=== PATIENT | male | born 1980 | race Caucasian/White ===

== ENCOUNTER 2017-03-05 12:31 | Emergency (ER) | payer OTHER ==
[~2017-03-05] VITALS: Ht 185.4 cm; Wt 149.7 kg
[~2017-03-05 12:31] MED LIST: ATOR20TA58 PO; GABA-586 PO; GLIP-112 PO; INSU100I17 SQ; INSU100I27 SQ; LIRA0.6P2 SQ; LURA40TA PO; METF100010 PO; OMEP40CA5 PO; TRAZ100T12 PO; VALS320T2 PO
[2017-03-05 12:45] VITALS: BP 124/67
[2017-03-05] MEDS ORDERED: HYDROcodone/APAP 5/325MG 1 TAB TABLET PO ONE (13:00)
[2017-03-05] MEDS ORDERED: CYCLOBENZAPRINE 10 MG TABLET. PO ONE (13:00)
--- NOTE | 2017-03-05 13:17 | RAD ---
Lumbar spine 3 views. History: Low back pain, left leg numbness 3 views were taken of the lumbar spine. The spine is in normal alignment. Disc spaces are normal in height. A fracture is not identified. Impression: 1. Negative lumbar spine.
--- NOTE | 2017-03-05 13:22 | PHYS DOC ---
Adult General Chief Complaint Chief Complaint: LOWER EXT PAIN HPI HPI Patient is a 36 year old male presents the ED complaining of back pain times 2 days. Patient states he bent down to pick something up and felt a pull in his lower back. States the pain is sharp. Rates the pain as 8 out of 10. States the pain radiates down his left leg. Denies bowel/bladder changes, saddle anesthesia , abdominal pain, dysuria, hematuria, fever, weakness or dizziness. Review of Systems Review of Systems Constitutional: Denies fever or chills [] Eyes: Denies change in visual acuity, redness, or eye pain [] HENT: Denies nasal congestion or sore throat [] Respiratory: Denies cough or shortness of breath [] Cardiovascular: No additional information not addressed in HPI [] GI: Denies abdominal pain, nausea, vomiting, bloody stools or diarrhea [] : Denies dysuria or hematuria [] Musculoskeletal: Complains of back pain. Denies joint pain [] Integument: Denies rash or skin lesions [] Neurologic: Denies headache, focal weakness or sensory changes [] Endocrine: Denies polyuria or polydipsia [] All other systems were reviewed and found to be within normal limits, except as documented in this note. Current Medications Current Medications Current Medications Medications (Trade) Dose Ordered Sig/[facility] Start Time Stop Time Status Last Admin Dose Admin Acetaminophen/ Hydrocodone Bitart (Lortab 5/325) 1 tab 1X ONCE 03/05/17 13:00 03/05/17 13:01 DC 03/05/17 13:10 1 TAB Cyclobenzaprine HCl (Flexeril) 10 mg 1X ONCE 03/05/17 13:00 03/05/17 13:01 DC 03/05/17 13:10 10 MG Allergies Allergies Allergies Coded Allergies Type Severity Reaction Last Updated Verified No Known Drug Allergies 01/30/17 No Physical Exam Physical Exam Constitutional: Well developed, well nourished, no acute distress, non-toxic appearance. [] HENT: Normocephalic, atraumatic, bilateral external ears normal, oropharynx moist, no oral exudates, nose normal. [] Eyes: PERRLA, EOMI, conjunctiva normal, no discharge. [] Neck: Normal range of motion, no tenderness, supple, no stridor. [] Cardiovascular:Heart rate regular rhythm, no murmur [] Lungs & Thorax: Bilateral breath sounds clear to auscultation [] Abdomen: Bowel sounds normal, soft, no tenderness, no masses, no pulsatile masses. [] Skin: Warm, dry, no erythema, no rash. [] Back: MILD LEFT LUMBAR PARASPINAL TENDERNESS. NO SWELLING OR OVERLYING SKIN CHANGES. no CVA tenderness. [] Extremities: No tenderness, no cyanosis, no clubbing, ROM intact, no edema. [] Neurologic: Alert and oriented X 3, normal motor function, normal sensory function, no focal deficits noted. [] Psychologic: Affect normal, judgement normal, mood normal. [] Current Patient Data Vital Signs Vital Signs Date Time Temp Pulse Resp B/P (MAP) Pulse Ox O2 Delivery O2 Flow Rate FiO2 03/05/17 12:45 98.2 99 16 97 Room Air 98.2 EKG EKG [] Radiology/Procedures Radiology/Procedures []PROCEDURE: LUMBAR SPINE 2-3V Lumbar spine 3 views. History: Low back pain, left leg numbness 3 views were taken of the lumbar spine. The spine is in normal alignment. Disc spaces are normal in height. A fracture is not identified. Impression: 1. Negative lumbar spine. Course & Med Decision Making Course & Med Decision Making Pertinent Labs and Imaging studies reviewed. (See chart for details) []X-ray negative for acute injury. Patient's pain improved. Vital stable, no acute distress. No focal neural deficits. Patient able to ambulate without assistance. Discussed follow-up with orthopedics early this next week. Provided contact information/education. Discussed reasons to return to the ED. Patient understands and agrees with plan. Dragon Disclaimer Dragon Disclaimer This electronic medical record was generated, in whole or in part, using a voice recognition dictation system. Departure Departure Impression: Primary Impression: Back injury Additional Impression: Muscle strain Disposition: 01 HOME, SELF-CARE Condition: IMPROVED Referrals: MARY CHU MD (PCP) ADRIANNA GREEN MD Patient Instructions: Back Pain, Adult, Muscle Strain Scripts Cyclobenzaprine Hcl (CYCLOBENZAPRINE HCL) 5 Mg Tablet 1 TAB PO TID, #12 TAB Prov: CUCA BUTLER 03/05/17 Hydrocodone/Apap 5-325 (NORCO 5-325 TABLET) 1 Each Tablet 1 TAB PO BID, #8 TAB Prov: CUCA BUTLER 03/05/17 Problem Qualifiers CUCA BUTLER Mar 05, 2017 13:22
[2017-03-05] MEDS ORDERED: HYDR-971 PO (13:25)
[2017-03-05] MEDS ORDERED: CYCL5TAB PO (13:25)
== END 2017-03-05 13:54 | disposition home or self-care (01) ==
LOC: ER 12:31
DX: S39.012A Strain of muscle, fascia and tendon of lower back, initial encounter (principal); X58.XXXA Exposure to other specified factors, initial encounter; Y93.89 Activity, other specified; Y92.89 Other specified places as the place of occurrence of the external cause; Y99.8 Other external cause status
CPT/HCPCS: 72100; 99284

== ENCOUNTER 2017-09-28 03:46 | Emergency (ER) | payer OTHER ==
[2017-09-28] MEDS ORDERED: CONTRAST GIVEN. MC (04:15)
[2017-09-28 04:27] LABS: ADD MAN DIFF? NO
[2017-09-28 04:28] LABS: BASO # 0.1 x10^3/uL (0.0-0.2); BASO % 1 % (0-3); EOS # 0.1 x10^3/uL (0.0-0.7); EOS % 1 % (0-3); HEMOGLOBIN 15.7 g/dL (13.0-17.5); LYMPH # 2.1 x10^3/uL (1.0-4.8); LYMPH % 27 % (24-48); MEAN CORPUSCULAR HEMOGLOBIN 34 pg (25-35); MEAN CORPUSCULAR HGB CONC 35 g/dL (31-37); MEAN CORPUSCULAR VOLUME 97 fL (79-100); MONO # 0.6 x10^3/uL (0.0-1.1); MONO % 8 % (0-9); NEUT % 63 % (31-73); PLATELET COUNT 178 x10^3/uL (140-400); RED BLOOD COUNT 4.65 x10^6/uL (4.30-5.70); RED CELL DISTRIBUTION WIDTH 12.9 % (11.5-14.5); WHITE BLOOD COUNT 7.9 x10^3/uL (4.0-11.0)
[2017-09-28] MEDS: IV NORMAL SALINE 1000ML BAG 1,000 ML IV (04:30)
[2017-09-28 04:46] LABS: ALBUMIN 3.4 g/dL (3.4-5.0); ALK PHOS 125 U/L (46-116); ALT (SGPT) 49 U/L (16-63); ANION GAP 5 (6-14); AST (SGOT) 35 U/L (15-37); BLOOD UREA NITROGEN 8 mg/dL (8-26); CALCIUM 8.9 mg/dL (8.5-10.1); CARBON DIOXIDE 26 mmol/L (21-32); CHLORIDE 100 mmol/L (98-107); CREATININE 1.2 mg/dL (0.7-1.3); DIRECT BILIRUBIN 0.1 mg/dL (0.0-0.2); GFR 68.5; LIPASE 169 U/L (73-393); SODIUM 131 mmol/L (136-145); TOTAL BILIRUBIN 0.3 mg/dL (0.2-1.0); TOTAL PROTEIN 7.8 g/dL (6.4-8.2)
[2017-09-28 04:56] LABS: GLUCOSE 549 mg/dL (70-99)
[2017-09-28] MEDS: IOHEXOL 300 MG/ML 100ML VIAL. IV (05:00)
[2017-09-28 05:14] LABS: BILIRUBIN,URINE NEGATIVE (NEG); CLARITY,URINE CLEAR; COLOR,URINE YELLOW; GLUCOSE,URINE >=1000 mg/dL (NEG); NITRITE,URINE NEGATIVE (NEG); PH,URINE 5.5; PROTEIN,URINE NEGATIVE (NEG-TRACE)
[2017-09-28 05:20] LABS: BACTERIA,URINE 0 /HPF (0-FEW); RBC,URINE 0 /HPF (0-2); SQUAMOUS EPITHELIAL CELL,UR OCC /LPF; WBC,URINE 0 /HPF (0-4)
[2017-09-28] MEDS: INSULIN REGULAR 100 UNIT/ML 3ML VIAL. IV (06:02)
== END 2017-09-28 06:35 | disposition home or self-care (01) ==
LOC: ER 03:46
DX: R10.10 Upper abdominal pain, unspecified (principal); R11.10 Vomiting, unspecified; R19.7 Diarrhea, unspecified
CPT/HCPCS: 36415; 74177; 80048; 80076; 81001; 83690; 85025; 96361; 96374; 99285-25; J1815; J7030; Q9967

== ENCOUNTER 2017-10-05 18:30 | Inpatient (IN) | payer OTHER ==
[2017-10-05 19:52] LABS: POC GLUCOSE 218 mg/dL (70-99)
[2017-10-05] MEDS ORDERED: DEXTROSE 50% 25 GM / 50ML DISP.SYRIN. IV (20:45)
[2017-10-05] MEDS ORDERED: ONDANSETRON PF 4 MG/2 ML VIAL. IV (20:45)
[2017-10-05] MEDS ORDERED: HYDROcodone/APAP 5/325MG 1 TAB TABLET PO (20:45)
[2017-10-05] MEDS: traZODone 100 MG TABLET. PO (21:48)
[2017-10-05] MEDS: GABAPENTIN 300 MG CAPSULE. PO (21:48)
[2017-10-05] MEDS: LURASIDONE 40 MG TABLET. PO (21:48)
[2017-10-05] MEDS: ATORVASTATIN CALCIUM 20 MG TABLET PO (21:48)
[2017-10-05] MEDS: IV NORMAL SALINE 1000ML BAG 1,000 ML IV (21:54)
[2017-10-05 22:03] LABS: ADD MAN DIFF? NO
[2017-10-05 22:07] LABS: BASO # 0.1 x10^3/uL (0.0-0.2); BASO % 1 % (0-3); EOS # 0.1 x10^3/uL (0.0-0.7); EOS % 1 % (0-3); HEMATOCRIT 46.8 % (39.0-53.0); LYMPH # 2.9 x10^3/uL (1.0-4.8); LYMPH % 26 % (24-48); MEAN CORPUSCULAR HEMOGLOBIN 33 pg (25-35); MEAN CORPUSCULAR HGB CONC 34 g/dL (31-37); MEAN CORPUSCULAR VOLUME 96 fL (79-100); MONO # 0.7 x10^3/uL (0.0-1.1); MONO % 6 % (0-9); NEUT # 7.6 x10^3uL (1.8-7.7); NEUT % 67 % (31-73); PLATELET COUNT 183 x10^3/uL (140-400); RED BLOOD COUNT 4.85 x10^6/uL (4.30-5.70); RED CELL DISTRIBUTION WIDTH 12.7 % (11.5-14.5); WHITE BLOOD COUNT 11.4 x10^3/uL (4.0-11.0)
[2017-10-05 22:20] LABS: ALBUMIN 3.5 g/dL (3.4-5.0); ALBUMIN/GLOBULIN RATIO 0.9 (1.0-1.7); ALK PHOS 107 U/L (46-116); ALT (SGPT) 68 U/L (16-63); AMYLASE 34 U/L (25-115); ANION GAP 8 (6-14); AST (SGOT) 36 U/L (15-37); BLOOD UREA NITROGEN 11 mg/dL (8-26); BUN/CREATININE RATIO 11 (6-20); CALCIUM 9.3 mg/dL (8.5-10.1); CARBON DIOXIDE 31 mmol/L (21-32); CHLORIDE 99 mmol/L (98-107); GFR 84.5; GLUCOSE 213 mg/dL (70-99); LIPASE 122 U/L (73-393); POTASSIUM 3.3 mmol/L (3.5-5.1); SODIUM 138 mmol/L (136-145); TOTAL BILIRUBIN 0.9 mg/dL (0.2-1.0); TOTAL PROTEIN 7.6 g/dL (6.4-8.2)
[2017-10-05 22:56] LABS: BILIRUBIN,URINE SMALL (NEG); CLARITY,URINE TURBID; COLOR,URINE ORANGE; GLUCOSE,URINE 100 mg/dL (NEG); PH,URINE 5.5; PROTEIN,URINE 100 mg/dL (NEG-TRACE)
[2017-10-05 23:04] LABS: AMORPHOUS SEDIMENT,UR PRESENT /HPF; BACTERIA,URINE 0 /HPF (0-FEW); NITRITE,URINE NEGATIVE (NEG); RBC,URINE 0 /HPF (0-2); SQUAMOUS EPITHELIAL CELL,UR OCC /LPF; WBC,URINE 0 /HPF (0-4)
[2017-10-05] MEDS: POTASSIUM CHLORIDE 20 MEQ TABLET.ER. PO (23:25)
[2017-10-06 04:58] LABS: ADD MAN DIFF? NO
[2017-10-06 05:02] LABS: BASO # 0.1 x10^3/uL (0.0-0.2); BASO % 1 % (0-3); EOS # 0.1 x10^3/uL (0.0-0.7); EOS % 1 % (0-3); HEMATOCRIT 44.9 % (39.0-53.0); HEMOGLOBIN 15.5 g/dL (13.0-17.5); LYMPH % 30 % (24-48); MEAN CORPUSCULAR HEMOGLOBIN 34 pg (25-35); MEAN CORPUSCULAR HGB CONC 35 g/dL (31-37); MEAN CORPUSCULAR VOLUME 97 fL (79-100); MONO # 0.7 x10^3/uL (0.0-1.1); MONO % 7 % (0-9); NEUT # 6.2 x10^3uL (1.8-7.7); NEUT % 62 % (31-73); PLATELET COUNT 157 x10^3/uL (140-400); RED BLOOD COUNT 4.63 x10^6/uL (4.30-5.70); RED CELL DISTRIBUTION WIDTH 12.7 % (11.5-14.5)
[2017-10-06 05:49] LABS: ANION GAP 12 (6-14); BLOOD UREA NITROGEN 13 mg/dL (8-26); CARBON DIOXIDE 27 mmol/L (21-32); CHLORIDE 101 mmol/L (98-107); CHOLESTEROL 208 mg/dL (0-200); GFR 84.5; GLUCOSE 234 mg/dL (70-99); HDLC 25 mg/dL (40-60); LDLC 139 mg/dL (0-100); NON-HDL CHOLESTEROL 183 mg/dL (0-129); POTASSIUM 3.2 mmol/L (3.5-5.1); SODIUM 140 mmol/L (136-145); TRIGLYCERIDES 219 mg/dL (0-150); VLDLC 44 mg/dL (0-40)
[2017-10-06 05:55] LABS: CHOLESTEROL/HDL RATIO 8.3
[2017-10-06 06:00] LABS: THYROID STIM HORMONE (TSH) 3.256 uIU/mL (0.358-3.74)
[2017-10-06] MEDS: LEVOTHYROXINE 25 MCG TABLET. PO (06:14)
[2017-10-06] MEDS: metFORMIN XR 500 MG TAB.ER.24H PO (06:14)
[2017-10-06] MEDS: PANTOPRAZOLE 40 MG TABLET.DR. PO (06:14)
[2017-10-06] MEDS: IV NORMAL SALINE 1000ML BAG 1,000 ML IV (06:14)
[2017-10-06 08:04] LABS: POC GLUCOSE 264 mg/dL (70-99)
[2017-10-06] MEDS: INSULIN LISPRO 300 UNITS/3 ML INSULN.PEN. SQ ×6 (08:13→16:35)
[2017-10-06] MEDS ORDERED: NON FORMULARY ITEM (Liraglutide (Victoza 3-Pak) 1.2 MG) SQ (09:00)
[2017-10-06] MEDS ORDERED: NON FORMULARY ITEM (Omeprazole 1 CAP) PO (09:00)
[2017-10-06] MEDS: LOSARTAN POTASSIUM 50 MG TABLET. PO (09:00)
[2017-10-06 10:56] LABS: POC GLUCOSE 236 mg/dL (70-99)
[2017-10-06] MEDS ORDERED: ONDANSETRON PF 4 MG/2 ML VIAL. IV (11:00)
[2017-10-06] MEDS ORDERED: PROCHLORPERAZINE 10 MG/2 ML VIAL. IV (11:00)
[2017-10-06] MEDS ORDERED: fentaNYL PF VIAL 100 MCG/2 ML VIAL IV ×4 (11:00→14:00)
[2017-10-06] MEDS ORDERED: MORPHINE SULFATE 2 MG/ML DISP.SYRIN. IV (11:00)
[2017-10-06] MEDS ORDERED: LIDOCAINE 1% PF 2 ML VIAL. ID ×2 (11:00→14:00)
[2017-10-06 11:23] LABS: HIV AB SCREEN Nonreactive (Nonreactive)
[2017-10-06] MEDS ORDERED: IV RINGERS,LACTATED 1000ML 1,000 ML IV (13:47)
[2017-10-06] MEDS ORDERED: MIDAZOLAM HCL/PF 2 MG/2 ML VIAL. IV (14:00)
[2017-10-06] MEDS: IV RINGERS,LACTATED 1000ML 1,000 ML IV (14:05)
[2017-10-06] MEDS ORDERED: PROPOFOL 10 MG/ML (20ML) VIAL. IV (14:45)
[2017-10-06] MEDS ORDERED: PROPOFOL 60 ML IV (14:47)
[2017-10-06 16:27] LABS: POC GLUCOSE 170 mg/dL (70-99)
[2017-10-06] MEDS: glipiZIDE ER 2.5 MG TAB.ER.24 PO (16:27)
[2017-10-06] MEDS: POTASSIUM CHLORIDE 20 MEQ TABLET.ER. PO (16:32)
[2017-10-06] MEDS ORDERED: INSULIN GLARGINE 300 UNITS/3 ML INSULN.PEN. SQ (21:00)
== END 2017-10-06 18:00 | disposition home or self-care (01) | DRG 392 ==
LOC: 5 SOUTH 18:30
PROVIDERS: Internal Medicine
PROC: 0DB68ZX Excision of Stomach, Via Natural or Artificial Opening Endoscopic, Diagnostic (ICD-10-PCS; principal; 2017-10-06 15:00)
DX: K21.0 Gastro-esophageal reflux disease with esophagitis (principal); Z68.41 Body mass index [BMI] 40.0-44.9, adult; E03.9 Hypothyroidism, unspecified; E11.40 Type 2 diabetes mellitus with diabetic neuropathy, unspecified; E11.65 Type 2 diabetes mellitus with hyperglycemia; E66.01 Morbid (severe) obesity due to excess calories; E78.5 Hyperlipidemia, unspecified; F20.9 Schizophrenia, unspecified; F90.9 Attention-deficit hyperactivity disorder, unspecified type; I10 Essential (primary) hypertension; Z82.49 Family history of ischemic heart disease and other diseases of the circulatory system; Z83.3 Family history of diabetes mellitus; Z90.89 Acquired absence of other organs
CPT/HCPCS: 36415; 71046; 76700; 80048; 80053; 80061; 81001; 82150; 82962; 83036; 83690; 84443; 85025; 86703; 93005; J1815; J2704; J7030; J7120

== ENCOUNTER 2017-11-19 18:21 | Emergency (ER) | payer OTHER ==
[~2017-11-19] VITALS: Ht 190.5 cm; Wt 140.6 kg
[~2017-11-19 18:21] MED LIST changes: +CYCL5TAB PO; +HYDR-971 PO; +TRAZ-86 PO; -TRAZ100T12 PO
[2017-11-19 18:46] LABS: BASO # 0.1 x10^3/uL (0.0-0.2); BASO % 1 % (0-3); EOS # 0.2 x10^3/uL (0.0-0.7); EOS % 1 % (0-3); HEMATOCRIT 50.9 % (39.0-53.0); HEMOGLOBIN 17.4 g/dL (13.0-17.5); LYMPH # 5.3 x10^3/uL (1.0-4.8); LYMPH % 32 % (24-48); MEAN CORPUSCULAR HEMOGLOBIN 33 pg (25-35); MEAN CORPUSCULAR HGB CONC 34 g/dL (31-37); MEAN CORPUSCULAR VOLUME 96 fL (79-100); MONO # 0.7 x10^3/uL (0.0-1.1); MONO % 5 % (0-9); NEUT # 10.3 x10^3uL (1.8-7.7); NEUT % 62 % (31-73); PLATELET COUNT 314 x10^3/uL (140-400); RED BLOOD COUNT 5.32 x10^6/uL (4.30-5.70); RED CELL DISTRIBUTION WIDTH 12.6 % (11.5-14.5); WHITE BLOOD COUNT 16.6 x10^3/uL (4.0-11.0)
--- NOTE | 2017-11-19 18:48 | EKG ---
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
--- NOTE | 2017-11-19 19:24 | RAD ---
CT Head W/O Contrast: History: near syncope no priors Comparison: none Axial images were obtained without contrast. The martinez and white matter appears normal and symmetrical for the patients age. There is no mass effect, extraaxial fluid collections or hydrocephalus. There is no gross bleed. There is no focal loss of martinez-white matter distinction to suggest acute ischemia, i.e. stroke. Impression: No acute findings. RS Compliance Statement: One or more of the following individualized dose reduction techniques were utilized for this examination: 1. Automated exposure control 2. Adjustment of the mA and/or kV according to patient size 3. Use of iterative reconstruction technique Electronically signed by: Phillip Concepcion III, MD (11/19/2017 7:21 PM) [facility]
[2017-11-19] MEDS: IV NORMAL SALINE 1000ML BAG 1,000 ML IV ONE ×2 (19:31→20:33)
[2017-11-19 19:47] LABS: CALCIUM 10.4 mg/dL (8.5-10.1); CREATININE 1.3 mg/dL (0.7-1.3); GFR 62.5; POTASSIUM 4.1 mmol/L (3.5-5.1)
[2017-11-19 19:53] LABS: ALBUMIN 3.5 g/dL (3.4-5.0); ALBUMIN/GLOBULIN RATIO 0.8 (1.0-1.7); TOTAL BILIRUBIN 0.6 mg/dL (0.2-1.0); TOTAL PROTEIN 7.9 g/dL (6.4-8.2)
[2017-11-19 20:23] LABS: BILIRUBIN,URINE SMALL (NEG); CLARITY,URINE CLEAR; COLOR,URINE YELLOW; NITRITE,URINE NEGATIVE (NEG); PH,URINE 5.5; PROTEIN,URINE 100 mg/dL (NEG-TRACE)
[2017-11-19 20:35] LABS: BACTERIA,URINE FEW /HPF (0-FEW); HYALINE CASTS, URINE MODERATE /HPF; SQUAMOUS EPITHELIAL CELL,UR FEW /LPF
--- NOTE | 2017-11-19 21:00 | PHYS DOC ---
Past Medical History Past Medical History: Bipolar, Diabetes-Type II, High Cholesterol, Hypertension , Hypothyroid Past Surgical History: No Surgical History Alcohol Use: None Drug Use: None Adult General Chief Complaint Chief Complaint: DIZZY/LIGHT HEADED HPI HPI Patient is a 37 year old male who presents with complaints of dizziness while walking today. The patient states that he was sweating profusely and felt like he might pass out. He states that he still feels extremely tired and sweaty. He states that he had a similar episode of this once before when he was dehydrated. The patient is diabetic and has not been taking his insulin. He states that he cannot get to a pharmacy to get his prescriptions filled. Review of Systems Review of Systems Constitutional: Denies fever or chills [] Eyes: Denies change in visual acuity, redness, or eye pain [] HENT: Denies nasal congestion or sore throat [] Respiratory: Denies cough or shortness of breath [] Cardiovascular: No additional information not addressed in HPI [] GI: Denies abdominal pain, nausea, vomiting, bloody stools or diarrhea [] : Denies dysuria or hematuria [] Musculoskeletal: Denies back pain or joint pain [] Integument: Denies rash or skin lesions [] Neurologic: See history of present illness Endocrine: Denies polyuria or polydipsia [] All other systems were reviewed and found to be within normal limits, except as documented in this note. Current Medications Current Medications Current Medications Medications (Trade) Dose Ordered Sig/Rafael Start Time Stop Time Status Last Admin Dose Admin Sodium Chloride 1,000 ml @ 1,000 mls/hr 1X ONCE 11/19/17 20:30 11/19/17 21:29 DC 11/19/17 20:33 1,000 MLS/HR Allergies Allergies Allergies Coded Allergies Type Severity Reaction Last Updated Verified No Known Drug Allergies 10/06/17 No Physical Exam Physical Exam Constitutional: Well developed, well nourished, no acute distress, non-toxic appearance. [] HENT: Normocephalic, atraumatic, bilateral external ears normal, oropharynx moist, no oral exudates, nose normal. [] Eyes: PERRLA, EOMI, conjunctiva normal, no discharge. [] Neck: Normal range of motion, no tenderness, supple, no stridor. [] Cardiovascular:Heart rate regular rhythm, no murmur [] Lungs & Thorax: Bilateral breath sounds clear to auscultation [] Abdomen: Bowel sounds normal, soft, no tenderness, no masses, no pulsatile masses. [] Skin: Warm, dry, no erythema, no rash. [] Back: No tenderness, no CVA tenderness. [] Extremities: No tenderness, no cyanosis, no clubbing, ROM intact, no edema. [] Neurologic: Alert and oriented X 3, normal motor function, normal sensory function, no focal deficits noted, cranial nerves II through XII are grossly intact. [] Psychologic: Affect normal, judgement normal, mood normal. [] Current Patient Data Vital Signs Vital Signs Date Time Temp Pulse Resp B/P (MAP) Pulse Ox O2 Delivery O2 Flow Rate FiO2 11/19/17 20:56 90 11/19/17 19:32 96 11/19/17 18:33 98.4 20 125/72 (89) Room Air 98.4 Lab Values Laboratory Tests Test 11/19/17 18:30 11/19/17 19:12 11/19/17 20:13 White Blood Count 16.6 x10^3/uL (4.0-11.0) H Red Blood Count 5.32 x10^6/uL (4.30-5.70) Hemoglobin 17.4 g/dL (13.0-17.5) Hematocrit 50.9 % (39.0-53.0) Mean Corpuscular Volume 96 fL (79-100) Mean Corpuscular Hemoglobin 33 pg (25-35) Mean Corpuscular Hemoglobin Concent 34 g/dL (31-37) Red Cell Distribution Width 12.6 % (11.5-14.5) Platelet Count 314 x10^3/uL (140-400) Neutrophils (%) (Auto) 62 % (31-73) Lymphocytes (%) (Auto) 32 % (24-48) Monocytes (%) (Auto) 5 % (0-9) Eosinophils (%) (Auto) 1 % (0-3) Basophils (%) (Auto) 1 % (0-3) Neutrophils # (Auto) 10.3 x10^3uL (1.8-7.7) H Lymphocytes # (Auto) 5.3 x10^3/uL (1.0-4.8) H Monocytes # (Auto) 0.7 x10^3/uL (0.0-1.1) Eosinophils # (Auto) 0.2 x10^3/uL (0.0-0.7) Basophils # (Auto) 0.1 x10^3/uL (0.0-0.2) Sodium Level 133 mmol/L (136-145) L Potassium Level 4.1 mmol/L (3.5-5.1) Chloride Level 97 mmol/L (98-107) L Carbon Dioxide Level 29 mmol/L (21-32) Anion Gap 7 (6-14) Blood Urea Nitrogen 11 mg/dL (8-26) Creatinine 1.3 mg/dL (0.7-1.3) Estimated GFR (Cockcroft-Gault) 62.5 BUN/Creatinine Ratio 8 (6-20) Glucose Level 393 mg/dL (70-99) H Calcium Level 10.4 mg/dL (8.5-10.1) H Total Bilirubin 0.6 mg/dL (0.2-1.0) Aspartate Amino Transferase (AST) 36 U/L (15-37) Alanine Aminotransferase (ALT) 57 U/L (16-63) Alkaline Phosphatase 133 U/L (46-116) H Creatine Kinase 115 U/L (39-308) Creatine Kinase MB (Mass) 1.0 ng/mL (0.0-3.6) Creatine Kinase MB Relative Index 0.9 % (0-4) Troponin I Quantitative < 0.017 ng/mL (0.000-0.055) Total Protein 7.9 g/dL (6.4-8.2) Albumin 3.5 g/dL (3.4-5.0) Albumin/Globulin Ratio 0.8 (1.0-1.7) L Urine Collection Type Void Urine Color Yellow Urine Clarity Clear Urine pH 5.5 Urine Specific [place] >=1.030 Urine Protein 100 mg/dL (NEG-TRACE) Urine Glucose (UA) >=1000 mg/dL (NEG) Urine Ketones (Stick) Trace mg/dL (NEG) Urine Blood Negative (NEG) Urine Nitrite Negative (NEG) Urine Bilirubin Small (NEG) Urine Urobilinogen Dipstick 1.0 mg/dL (0.2 mg/dL) Urine Leukocyte Esterase Negative (NEG) Urine RBC 1-2 /HPF (0-2) Urine WBC 1-4 /HPF (0-4) Urine Squamous Epithelial Cells Few /LPF Urine Bacteria Few /HPF (0-FEW) Urine Hyaline Casts Moderate /HPF Urine Mucus Mod /LPF Laboratory Tests 11/19/17 18:30 Laboratory Tests 11/19/17 19:12 EKG EKG [] Radiology/Procedures Radiology/Procedures []PATIENT: MARCIE GONZALEZACCOUNT: [id number]#: [id number] : 1980 LOCATION: ER AGE: 37 SEX: M EXAM STATUS: REG ER ORD. PHYSICIAN: BETZAIDA EAST APRN REASON: near syncope PROCEDURE: CT HEAD WO CONTRAST CT Head W/O Contrast: History: near syncope no priors Comparison: none Axial images were obtained without contrast. The martinez and white matter appears normal and symmetrical for the patients age. There is no mass effect, extraaxial fluid collections or hydrocephalus. There is no gross bleed. There is no focal loss of martinez-white matter distinction to suggest acute ischemia, i.e. stroke. Impression: No acute findings. RS Compliance Statement: One or more of the following individualized dose reduction techniques were utilized for this examination: 1. Automated exposure control 2. Adjustment of the mA and/or kV according to patient size 3. Use of iterative reconstruction technique Electronically signed by: Adrianna Garsia III, MD (11/19/2017 7:21 PM) [facility] DICTATED and SIGNED BY: ADRIANNA GARSIA III, MD DATE: 11/19/171918 Course & Med Decision Making Course & Med Decision Making Pertinent Labs and Imaging studies reviewed. (See chart for details) []The patient I had a long talk about the consultations of untreated diabetes. He states that he will get to the pharmacy and start taking his medications as directed. Dragon Disclaimer Dragon Disclaimer This electronic medical record was generated, in whole or in part, using a voice recognition dictation system. Departure Departure Impression: Primary Impression: Uncontrolled diabetes mellitus Additional Impression: Dehydration Disposition: 01 HOME, SELF-CARE Condition: STABLE Referrals: MARY CHU MD (PCP) Patient Instructions: Dehydration, Adult, How to Avoid Diabetes Problems Additional Instructions: Refill your prescriptions for your insulin and start using it as directed. Follow-up with your primary care provider for recheck in 3 days. Increase fluids and rest. Return to the emergency department if worsening. Problem Qualifiers BETZAIDA EAST APRN Nov 19, 2017 21:00
[2017-11-19 21:26] VITALS: BP 154/86
== END 2017-11-19 21:35 | disposition home or self-care (01) ==
LOC: ER 18:21
DX: E11.9 Type 2 diabetes mellitus without complications (principal); E86.0 Dehydration; I10 Essential (primary) hypertension; E78.00 Pure hypercholesterolemia, unspecified; E03.9 Hypothyroidism, unspecified; F31.9 Bipolar disorder, unspecified; R42 Dizziness and giddiness; R53.83 Other fatigue
CPT/HCPCS: 36415; 70450; 80053; 81001; 82553; 84484; 85025; 93005; 96360; 96361; 99285; J7030

== ENCOUNTER 2018-04-12 21:42 | Emergency (ER) | payer OTHER ==
[~2018-04-12] VITALS: Ht 188 cm; Wt 140.6 kg
[~2018-04-12 21:42] MED LIST changes: -GABA-586 PO; +GABA300C18 PO; -GLIP-112 PO; +GLIP10TA24 PO; +HYDR-3164 PO; -HYDR-971 PO
[2018-04-12 22:23] LABS: BASO # 0.1 x10^3/uL (0.0-0.2); BASO % 1 % (0-3); EOS # 0.1 x10^3/uL (0.0-0.7); EOS % 1 % (0-3); HEMATOCRIT 50.4 % (39.0-53.0); HEMOGLOBIN 17.8 g/dL (13.0-17.5); LYMPH # 2.5 x10^3/uL (1.0-4.8); LYMPH % 18 % (24-48); MEAN CORPUSCULAR HEMOGLOBIN 34 pg (25-35); MEAN CORPUSCULAR HGB CONC 35 g/dL (31-37); MEAN CORPUSCULAR VOLUME 96 fL (79-100); MONO # 0.8 x10^3/uL (0.0-1.1); MONO % 6 % (0-9); NEUT # 10.1 x10^3uL (1.8-7.7); NEUT % 74 % (31-73); PLATELET COUNT 208 x10^3/uL (140-400); RED BLOOD COUNT 5.25 x10^6/uL (4.30-5.70); RED CELL DISTRIBUTION WIDTH 12.4 % (11.5-14.5); WHITE BLOOD COUNT 13.6 x10^3/uL (4.0-11.0)
[2018-04-12 22:32] LABS: ANION GAP 4 (6-14); BLOOD UREA NITROGEN 11 mg/dL (8-26); BUN/CREATININE RATIO 10 (6-20); CALCIUM 9.7 mg/dL (8.5-10.1); CARBON DIOXIDE 31 mmol/L (21-32); CHLORIDE 95 mmol/L (98-107); CREATININE 1.1 mg/dL (0.7-1.3); GFR 75.3; GLUCOSE 291 mg/dL (70-99); POTASSIUM 3.8 mmol/L (3.5-5.1); SODIUM 130 mmol/L (136-145)
[2018-04-12 22:37] LABS: ALBUMIN 3.6 g/dL (3.4-5.0); ALBUMIN/GLOBULIN RATIO 0.7 (1.0-1.7); ALK PHOS 137 U/L (46-116); ALT (SGPT) 49 U/L (16-63); AST (SGOT) 37 U/L (15-37); TOTAL BILIRUBIN 0.8 mg/dL (0.2-1.0); TOTAL PROTEIN 8.6 g/dL (6.4-8.2)
[2018-04-12] MEDS: IV NORMAL SALINE 1000ML BAG 1,000 ML IV ONE ×3 (22:41→23:00)
--- NOTE | 2018-04-12 22:49 | RAD ---
CHEST AP ONLY History: Short of breath. Comparison: October 05, 2017 Cardiomediastinal silhouette: Not grossly enlarged. Lungs: No focal airspace consolidation. Pleura: No evidence of pleural effusion. Pneumothorax: None visualized Support Devices: None. Impression: No acute radiographic findings. Electronically signed by: Gregorio Sage MD (04/12/2018 10:45 PM) [facility]
[2018-04-12 22:50] LABS: ACETONE NEG (NEG)
[2018-04-12 23:04] LABS: INFLUENZA A PATIENT NEGATIVE (NEGATIVE); INFLUENZA B PATIENT NEGATIVE (NEGATIVE)
--- NOTE | 2018-04-12 23:20 | PHYS DOC ---
Past Medical History Past Medical History: Bipolar, Diabetes-Type II, High Cholesterol, Hypertension , Hypothyroid Past Surgical History: Other Additional Past Surgical Histo: Tubes in ears as a child Alcohol Use: None Drug Use: None Adult General Chief Complaint Chief Complaint: WEAKNESS/GENERALIZED HPI HPI Patient is a 38 year old male with history of bipolar, hypothyroidism, type 2 insulin-dependent diabetes, hypertension dyslipidemia who presents with body aches, generalized weakness, cough and lightheadedness starting earlier today. Patient reports he has been elevated in the 250 range. No fever chills, chest pain shortness of breath. No other acute symptoms or complaints. [] Review of Systems Review of Systems Review symptoms as per history of present illness. All other systems were reviewed and found to be within normal limits, except as documented in this note. Current Medications Current Medications Current Medications Medications (Trade) Dose Ordered Sig/Rafael Start Time Stop Time Status Last Admin Dose Admin Acetaminophen (Tylenol) 650 mg 1X ONCE 04/13/18 01:00 04/13/18 01:01 DC 04/13/18 01:03 650 MG Sodium Chloride 1,000 ml @ 1,000 mls/hr 1X ONCE 04/12/18 23:00 04/12/18 23:59 DC Allergies Allergies Allergies Coded Allergies Type Severity Reaction Last Updated Verified No Known Drug Allergies 10/06/17 No Physical Exam Physical Exam Constitutional: Well developed, well nourished, no acute distress, non-toxic appearance. [] HENT: Normocephalic, atraumatic, bilateral external ears normal, oropharynx moist, nose normal. [] Eyes: PERRLA, EOMI, conjunctiva normal. [] Neck: Normal range of motion, no tenderness. [] Cardiovascular:Heart rate regular rhythm, no murmur. [] Lungs & Thorax: Bilateral breath sounds clear to auscultation [] Abdomen: Bowel sounds normal, soft, no tenderness. [] Skin: Warm, dry, no erythema. [] Back: No tenderness. [] Extremities: No tenderness, no edema. [] Neurologic: Alert and oriented X 3, normal motor function, normal sensory function, no focal deficits noted. [] Psychologic: Affect normal, judgement normal, mood normal. [] Current Patient Data Vital Signs Vital Signs Date Time Temp Pulse Resp B/P (MAP) Pulse Ox O2 Delivery O2 Flow Rate FiO2 04/13/18 01:03 84 22 98 04/12/18 21:45 98.2 149/83 (105) Room Air 98.2 Lab Values Laboratory Tests Test 04/12/18 22:10 04/12/18 22:34 04/12/18 23:50 White Blood Count 13.6 x10^3/uL (4.0-11.0) H Red Blood Count 5.25 x10^6/uL (4.30-5.70) Hemoglobin 17.8 g/dL (13.0-17.5) H Hematocrit 50.4 % (39.0-53.0) Mean Corpuscular Volume 96 fL (79-100) Mean Corpuscular Hemoglobin 34 pg (25-35) Mean Corpuscular Hemoglobin Concent 35 g/dL (31-37) Red Cell Distribution Width 12.4 % (11.5-14.5) Platelet Count 208 x10^3/uL (140-400) Neutrophils (%) (Auto) 74 % (31-73) H Lymphocytes (%) (Auto) 18 % (24-48) L Monocytes (%) (Auto) 6 % (0-9) Eosinophils (%) (Auto) 1 % (0-3) Basophils (%) (Auto) 1 % (0-3) Neutrophils # (Auto) 10.1 x10^3uL (1.8-7.7) H Lymphocytes # (Auto) 2.5 x10^3/uL (1.0-4.8) Monocytes # (Auto) 0.8 x10^3/uL (0.0-1.1) Eosinophils # (Auto) 0.1 x10^3/uL (0.0-0.7) Basophils # (Auto) 0.1 x10^3/uL (0.0-0.2) Sodium Level 130 mmol/L (136-145) L Potassium Level 3.8 mmol/L (3.5-5.1) Chloride Level 95 mmol/L (98-107) L Carbon Dioxide Level 31 mmol/L (21-32) Anion Gap 4 (6-14) L Blood Urea Nitrogen 11 mg/dL (8-26) Creatinine 1.1 mg/dL (0.7-1.3) Estimated GFR (Cockcroft-Gault) 75.3 BUN/Creatinine Ratio 10 (6-20) Glucose Level 291 mg/dL (70-99) H Calcium Level 9.7 mg/dL (8.5-10.1) Total Bilirubin 0.8 mg/dL (0.2-1.0) Aspartate Amino Transferase (AST) 37 U/L (15-37) Alanine Aminotransferase (ALT) 49 U/L (16-63) Alkaline Phosphatase 137 U/L (46-116) H Creatine Kinase 205 U/L (39-308) Troponin I Quantitative < 0.017 ng/mL (0.000-0.055) Total Protein 8.6 g/dL (6.4-8.2) H Albumin 3.6 g/dL (3.4-5.0) Albumin/Globulin Ratio 0.7 (1.0-1.7) L Thyroid Stimulating Hormone (TSH) 2.661 uIU/mL (0.358-3.74) Acetone Level Neg (NEG) Influenza Type A Antigen Negative (NEGATIVE) Influenza Type B Antigen Negative (NEGATIVE) Urine Collection Type Unknown Urine Color [place] Urine Clarity Clear Urine pH 5.0 Urine Specific [place] >=1.030 Urine Protein 100 mg/dL (NEG-TRACE) Urine Glucose (UA) 500 mg/dL (NEG) Urine Ketones (Stick) Negative mg/dL (NEG) Urine Blood Negative (NEG) Urine Nitrite Negative (NEG) Urine Bilirubin Small (NEG) Urine Urobilinogen Dipstick 1.0 mg/dL (0.2 mg/dL) Urine Leukocyte Esterase Negative (NEG) Urine RBC 0 /HPF (0-2) Urine WBC 0 /HPF (0-4) Urine Squamous Epithelial Cells Occ /LPF Urine Bacteria 0 /HPF (0-FEW) Urine Hyaline Casts Few /HPF Urine Mucus Mod /LPF Laboratory Tests 04/12/18 22:10 Laboratory Tests 04/12/18 22:10 EKG EKG [EKG: reviewed] Radiology/Procedures Radiology/Procedures [CXR: NAD] Course & Med Decision Making Course & Med Decision Making Pertinent Labs and Imaging studies reviewed. (See chart for details) [IVF given. Symptoms improved. Patient walks with steady gait. Recommend outpatient follow-up with PCP for further evaluation. Return precautions reviewed. Dragon Disclaimer Dragon Disclaimer This electronic medical record was generated, in whole or in part, using a voice recognition dictation system. Departure Departure Impression: Primary Impression: Hyperglycemia Additional Impressions: Hyponatremia Dizziness Disposition: ADMITTED INPATIENT Condition: Referrals: MARY CHU MD (PCP) Scripts Ondansetron Hcl (ZOFRAN) 4 Mg Tablet 1 TAB PO Q6HRS, #5 TAB 0 Refills Prov: SHE GALINDO DO 04/13/18 Problem Qualifiers SHE GALINDO DO Apr 12, 2018 23:20
[2018-04-13 00:05] LABS: BILIRUBIN,URINE SMALL (NEG); CLARITY,URINE CLEAR; COLOR,URINE AMBER; NITRITE,URINE NEGATIVE (NEG); PROTEIN,URINE 100 mg/dL (NEG-TRACE)
[2018-04-13 00:12] LABS: BACTERIA,URINE 0 /HPF (0-FEW); HYALINE CASTS, URINE FEW /HPF; RBC,URINE 0 /HPF (0-2); SQUAMOUS EPITHELIAL CELL,UR OCC /LPF; WBC,URINE 0 /HPF (0-4)
[2018-04-13] MEDS ORDERED: ONDA4TAB7 PO (00:52)
[2018-04-13 01:03] VITALS: BP 143/81
[2018-04-13] MEDS: ACETAMINOPHEN 325 MG TABLET. PO ONE (01:03)
--- NOTE | 2018-04-13 11:22 | EKG ---
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
== END 2018-04-13 01:09 | disposition home or self-care (01) ==
LOC: ER 21:42
DX: E11.65 Type 2 diabetes mellitus with hyperglycemia (principal); R42 Dizziness and giddiness; R53.1 Weakness; R05 Cough; E87.1 Hypo-osmolality and hyponatremia; E03.9 Hypothyroidism, unspecified; F31.9 Bipolar disorder, unspecified; E78.00 Pure hypercholesterolemia, unspecified; I10 Essential (primary) hypertension; Z96.22 Myringotomy tube(s) status
CPT/HCPCS: 36415; 71045; 80053; 81001; 82010; 82550; 84443; 84484; 85025; 87804; 93005; 96360; 99284; J7030

== ENCOUNTER 2018-04-27 11:08 | Emergency (ER) | payer OTHER ==
[~2018-04-27] VITALS: Ht 172.7 cm; Wt 140.6 kg
[~2018-04-27 11:08] MED LIST changes: +ONDA4TAB7 PO
[2018-04-27] MEDS ORDERED: IV NORMAL SALINE 1000ML BAG 1,000 ML IV ONE (11:45)
[2018-04-27 11:56] LABS: BASO # 0.1 x10^3/uL (0.0-0.2); BASO % 1 % (0-3); EOS # 0.1 x10^3/uL (0.0-0.7); EOS % 1 % (0-3); HEMATOCRIT 42.2 % (39.0-53.0); HEMOGLOBIN 14.2 g/dL (13.0-17.5); LYMPH # 1.9 x10^3/uL (1.0-4.8); LYMPH % 23 % (24-48); MEAN CORPUSCULAR HEMOGLOBIN 33 pg (25-35); MEAN CORPUSCULAR HGB CONC 34 g/dL (31-37); MEAN CORPUSCULAR VOLUME 96 fL (79-100); MONO # 0.6 x10^3/uL (0.0-1.1); MONO % 7 % (0-9); NEUT # 5.7 x10^3uL (1.8-7.7); NEUT % 68 % (31-73); PLATELET COUNT 169 x10^3/uL (140-400); RED BLOOD COUNT 4.38 x10^6/uL (4.30-5.70); RED CELL DISTRIBUTION WIDTH 12.7 % (11.5-14.5); WHITE BLOOD COUNT 8.3 x10^3/uL (4.0-11.0)
--- NOTE | 2018-04-27 12:01 | RAD ---
CHEST PA LATERAL History: WEAKNESS, DIZZINESS Comparison: AP chest April 12, 2018. Findings: The cardiomediastinal silhouette is normal. Pulmonary vasculature is normal. The lungs are clear. No pleural effusion or pneumothorax is seen. There is no acute bone abnormality. IMPRESSION: No acute cardiopulmonary process. Electronically signed by: Reza Cavanaugh MD (04/27/2018 11:56 AM) [id number]
--- NOTE | 2018-04-27 12:15 | PHYS DOC ---
Past Medical History Past Medical History: Bipolar, Diabetes-Type II, High Cholesterol, Hypertension , Hypothyroid Past Surgical History: Other Additional Past Surgical Histo: Tubes in ears as a child Alcohol Use: None Drug Use: None Adult General Chief Complaint Chief Complaint: WEAKNESS/GENERALIZED HPI HPI Patient is a 38 year old [f__sex] who presents with [] Review of Systems Review of Systems Constitutional: Denies fever or chills [] Eyes: Denies change in visual acuity, redness, or eye pain [] HENT: Denies nasal congestion or sore throat [] Respiratory: Denies cough or shortness of breath [] Cardiovascular: No additional information not addressed in HPI [] GI: Denies abdominal pain, nausea, vomiting, bloody stools or diarrhea [] : Denies dysuria or hematuria [] Musculoskeletal: Denies back pain or joint pain [] Integument: Denies rash or skin lesions [] Neurologic: Denies headache, focal weakness or sensory changes [] Endocrine: Denies polyuria or polydipsia [] All other systems were reviewed and found to be within normal limits, except as documented in this note. Current Medications Current Medications Current Medications Medications (Trade) Dose Ordered Sig/Rafael Start Time Stop Time Status Last Admin Dose Admin Sodium Chloride 1,000 ml @ 1,000 mls/hr 1X ONCE 04/27/18 11:45 04/27/18 12:44 DC 04/27/18 12:05 1,000 MLS/HR Allergies Allergies Allergies Coded Allergies Type Severity Reaction Last Updated Verified No Known Drug Allergies 10/06/17 No Physical Exam Physical Exam Constitutional: Well developed, well nourished, no acute distress, non-toxic appearance. [] HENT: Normocephalic, atraumatic, bilateral external ears normal, oropharynx moist, no oral exudates, nose normal. [] Eyes: PERRLA, EOMI, conjunctiva normal, no discharge. [] Neck: Normal range of motion, no tenderness, supple, no stridor. [] Cardiovascular:Heart rate regular rhythm, no murmur [] Lungs & Thorax: Bilateral breath sounds clear to auscultation [] Abdomen: Bowel sounds normal, soft, no tenderness, no masses, no pulsatile masses. [] Skin: Warm, dry, no erythema, no rash. [] Back: No tenderness, no CVA tenderness. [] Extremities: No tenderness, no cyanosis, no clubbing, ROM intact, no edema. [] Neurologic: Alert and oriented X 3, normal motor function, normal sensory function, no focal deficits noted. [] Psychologic: Affect normal, judgement normal, mood normal. [] Current Patient Data Vital Signs Vital Signs Date Time Temp Pulse Resp B/P (MAP) Pulse Ox O2 Delivery O2 Flow Rate FiO2 04/27/18 11:28 98.6 91 16 155/86 (109) 100 Room Air 98.6 Lab Values Laboratory Tests Test 04/27/18 11:30 04/27/18 12:05 04/27/18 13:45 White Blood Count 8.3 x10^3/uL (4.0-11.0) Red Blood Count 4.38 x10^6/uL (4.30-5.70) Hemoglobin 14.2 g/dL (13.0-17.5) Hematocrit 42.2 % (39.0-53.0) Mean Corpuscular Volume 96 fL (79-100) Mean Corpuscular Hemoglobin 33 pg (25-35) Mean Corpuscular Hemoglobin Concent 34 g/dL (31-37) Red Cell Distribution Width 12.7 % (11.5-14.5) Platelet Count 169 x10^3/uL (140-400) Neutrophils (%) (Auto) 68 % (31-73) Lymphocytes (%) (Auto) 23 % (24-48) L Monocytes (%) (Auto) 7 % (0-9) Eosinophils (%) (Auto) 1 % (0-3) Basophils (%) (Auto) 1 % (0-3) Neutrophils # (Auto) 5.7 x10^3uL (1.8-7.7) Lymphocytes # (Auto) 1.9 x10^3/uL (1.0-4.8) Monocytes # (Auto) 0.6 x10^3/uL (0.0-1.1) Eosinophils # (Auto) 0.1 x10^3/uL (0.0-0.7) Basophils # (Auto) 0.1 x10^3/uL (0.0-0.2) Sodium Level 138 mmol/L (136-145) Potassium Level 3.7 mmol/L (3.5-5.1) Chloride Level 103 mmol/L (98-107) Carbon Dioxide Level 30 mmol/L (21-32) Anion Gap 5 (6-14) L Blood Urea Nitrogen 8 mg/dL (8-26) Creatinine 0.8 mg/dL (0.7-1.3) Estimated GFR (Cockcroft-Gault) 108.8 BUN/Creatinine Ratio 10 (6-20) Glucose Level 216 mg/dL (70-99) H Calcium Level 9.0 mg/dL (8.5-10.1) Magnesium Level 2.0 mg/dL (1.8-2.4) Total Bilirubin 0.4 mg/dL (0.2-1.0) Aspartate Amino Transferase (AST) 19 U/L (15-37) Alanine Aminotransferase (ALT) 34 U/L (16-63) Alkaline Phosphatase 96 U/L (46-116) Creatine Kinase 208 U/L (39-308) Creatine Kinase MB (Mass) 2.0 ng/mL (0.0-3.6) Creatine Kinase MB Relative Index 1.0 % (0-4) Troponin I Quantitative < 0.017 ng/mL (0.000-0.055) Total Protein 7.1 g/dL (6.4-8.2) Albumin 3.1 g/dL (3.4-5.0) L Albumin/Globulin Ratio 0.8 (1.0-1.7) L Ethyl Alcohol Level < 10 mg/dL (0-10) Urine Collection Type Unknown Urine Color Yellow Urine Clarity Clear Urine pH 6.0 Urine Specific Gleason 1.025 Urine Protein Negative mg/dL (NEG-TRACE) Urine Glucose (UA) 250 mg/dL (NEG) Urine Ketones (Stick) Negative mg/dL (NEG) Urine Blood Negative (NEG) Urine Nitrite Negative (NEG) Urine Bilirubin Negative (NEG) Urine Urobilinogen Dipstick 4.0 mg/dL (0.2 mg/dL) Urine Leukocyte Esterase Negative (NEG) Urine RBC 0 /HPF (0-2) Urine WBC 0 /HPF (0-4) Urine Squamous Epithelial Cells Few /LPF Urine Bacteria 0 /HPF (0-FEW) Urine Mucus Mod /LPF Urine Opiates Screen Neg (NEG) Urine Methadone Screen Neg (NEG) Urine Barbiturates Neg (NEG) Urine Phencyclidine Screen Neg (NEG) Urine Amphetamine/Methamphetamine Neg (NEG) Urine Benzodiazepines Screen Neg (NEG) Urine Cocaine Screen Neg (NEG) Urine Cannabinoids Screen Neg (NEG) Urine Ethyl Alcohol Neg (NEG) Laboratory Tests 04/27/18 11:30 Laboratory Tests 04/27/18 12:05 EKG EKG @1113 NSR at 91bpm, NO ST elevation Radiology/Procedures Radiology/Procedures PROCEDURE: CHEST PA & LATERAL CHEST PA LATERAL History: WEAKNESS, DIZZINESS Comparison: AP chest April 12, 2018. Findings: The cardiomediastinal silhouette is normal. Pulmonary vasculature is normal. The lungs are clear. No pleural effusion or pneumothorax is seen. There is no acute bone abnormality. IMPRESSION: No acute cardiopulmonary process. Electronically signed by: Reza Cavanaugh MD (04/27/2018 11:56 AM) [id number] Course & Med Decision Making Course & Med Decision Making Pertinent Labs and Imaging studies reviewed. (See chart for details) [] Dragon Disclaimer Dragon Disclaimer This electronic medical record was generated, in whole or in part, using a voice recognition dictation system. Departure Departure Impression: Primary Impression: Weakness Disposition: 01 HOME, SELF-CARE Condition: STABLE Referrals: MARY CHU MD (PCP) Patient Instructions: Weakness, [id number] Additional Instructions: Increase your fluid hydration and follow closely with your family physician. NIHSS Stroke Scale NIH Stroke Scale: NIH Stroke Scale Response (Comments) Value Level of Consciousness: 0 Alert/Responsive 0 LOC Questions: 0 Answers both correctly 0 LOC Commands: 0 Performs both tasks 0 Best Gaze: 0 Normal 0 Visual: 0 No visual loss 0 Facial Palsy: 0 Normal, symmetrical 0 Motor - Left Arm 0 No drift 0 Motor - Right Arm 0 No drift 0 Motor - Left Leg 0 No drift 0 Motor: Right Leg 0 No drift 0 Limb Ataxia: 0 Absent 0 Sensory: 0 No loss 0 Best Language: 0 Normal 0 Dysathria: 0 Normal 0 Extinction and Inattention: 0 Normal 0 Total 0 KHANDONNA DO Apr 27, 2018 12:15
[2018-04-27 12:32] LABS: CREATININE 0.8 mg/dL (0.7-1.3); GFR 108.8; POTASSIUM 3.7 mmol/L (3.5-5.1)
[2018-04-27 12:37] LABS: ALBUMIN 3.1 g/dL (3.4-5.0); ALBUMIN/GLOBULIN RATIO 0.8 (1.0-1.7); TOTAL BILIRUBIN 0.4 mg/dL (0.2-1.0); TOTAL PROTEIN 7.1 g/dL (6.4-8.2)
[2018-04-27 13:51] LABS: BILIRUBIN,URINE NEGATIVE (NEG); CLARITY,URINE CLEAR; COLOR,URINE YELLOW; NITRITE,URINE NEGATIVE (NEG); PROTEIN,URINE NEGATIVE (NEG-TRACE)
[2018-04-27 13:57] LABS: BARBITURATES NEG (NEG); BENZODIAZEPINES NEG (NEG); CANNABINOIDS NEG (NEG); COCAINE NEG (NEG); METHADONE NEG (NEG); OPIATES NEG (NEG); PHENCYCLIDINE NEG (NEG)
[2018-04-27 14:00] LABS: AMPHETAMINE/METHAMPHETAMINE NEG (NEG)
[2018-04-27 14:12] LABS: BACTERIA,URINE 0 /HPF (0-FEW); RBC,URINE 0 /HPF (0-2); SQUAMOUS EPITHELIAL CELL,UR FEW /LPF; WBC,URINE 0 /HPF (0-4)
[2018-04-27 14:33] VITALS: BP 132/76
== END 2018-04-27 15:00 | disposition home or self-care (01) ==
LOC: ER 11:08
DX: R53.1 Weakness (principal); R42 Dizziness and giddiness; F31.9 Bipolar disorder, unspecified; E11.9 Type 2 diabetes mellitus without complications; E78.00 Pure hypercholesterolemia, unspecified; I10 Essential (primary) hypertension; E03.9 Hypothyroidism, unspecified
CPT/HCPCS: 36415; 71046; 80053; 80307; 81001; 82553; 83735; 84484; 85025; 96360; 96361; 99284; G0480; J7030

== ENCOUNTER 2018-08-21 10:47 | Inpatient (IN) | payer OTHER ==
[~2018-08-21] VITALS: Ht 190.5 cm; Wt 143.3 kg
[~2018-08-21 10:47] MED LIST changes: +LEVO25TA4 PO; +SUCR1TAB35 PO
[2018-08-21 12:37] VITALS: BP 115/78
[2018-08-21] MEDS ORDERED: 0.9 % SODIUM CHLORIDE 10 ML DISP.SYRIN. IV PRN (13:00)
--- NOTE | 2018-08-21 13:38 | PDOC2 ---
GI CONSULT Reason For Consult: Abd pain HPI: HPI: 38 y/o male directly admitted by his PCP for abd pain. Tells me pain has been going on for months but was suddenly worse a couple days ago. Denies precipitating events. Describes upper abdominal (epigastrium radiating to BUQ) "burning" that is constant but worse after eating; however, seems to do okay with "liquids." Also has pain ("like someone's standing on it") in middle of back - has a h/o lower back pain but this is different. Has some nausea but hasn't vomited recently. Describes early satiety ("I can only eat one piece of chicken instead of two"). H/o GERD on omeprazole QD ("in the mornings") - says this used to control his heartburn but now it doesn't. Has also been on sucralfate QID for about 2 months. Hasn't stooled in 4-5 days which is unusual because he usually stools once daily (or has diarrhea if he eats dairy). Reports 14 lb weight loss in a few days. No dysphagia or bleeding. He was supposed to have a test that Dr. Mcdaniel ordered sometime "but they didn't tell me about it." Was in the ER on 08/19/18 for similar issues - labs unrevealing, symptoms improved w/ GI cocktail and Ativan, was discharged to home. He agrees that GI cocktail helped for a little while but has been unable to sleep due to abdominal pain. We saw him in 09/2017 for n/v, upper abdominal pain, and weight loss. EGD and that time (by Dr. Mcdaniel) showed mild reflux esophagitis, pre-pyloric erythema (biopsy w/ mild chronic H. pylori negative gastritis), and normal duodenum. Abd US at that time showed normal gallbladder and borderline splenomegaly. CT A/P around that time was unrevealing. No previous colonoscopy. No GB, liver, or pancreas history. Takes ibuprofen "once in a blue jones" for lower back pain. H/o DM - last A1c here in 09/2017 was 11 (improved from 15 in 2017), doesn't check glucose at home "because the needles are too small." PMH: PMH: HTN, HLD, DM, neuropathy, GERD, ADHD, bipolar, obesity, umbilical and bilateral inguinal hernias (noted on past imaging) tonsillectomy, t-tubes FH: Family History: CAD, DM, Hypertension Social History: Smoke: No ALCOHOL: none Drugs: None ROS: GEN: Denies fevers, chills, sweats HEENT: Denies blurred vision, sore throat CV: Denies chest pain RESP: Denies shortness of air, cough GI: Per HPI : Denies hematuria, dysuria ENDO: +weight loss NEURO: Denies confusion, dizziness MSK: +back pain SKIN: Denies jaundice, pruritus Vitals: Vitals: Please see EMR. Labs: Labs: Please see orders. Allergies: Coded Allergies: No Known Drug Allergies (Unverified , 10/06/17) verified Medications: Please see EMR. Imaging: Imaging: Please see orders. PE: GEN: NAD HEENT: Atraumatic, PERRL LUNGS: CTAB HEART: RRR ABD: NABS, soft, obese, epigastric discomfort tracking to RUQ and LUQ EXTREMITY: No edema SKIN: No rashes, no jaundice NEURO/PSYCH: A & O 3, anxious, kicking feet around in bed A/P: A/P: Upper abd pain, nausea, early satiety GERD - EGD w/ mild reflux esophagitis 09/2017, on PPI ?constipation CRC screen - average risk DM -- Chronic/recurrent symptoms - previous workup as above unrevealing except for reflux. Await pending labs (CBC, CMP, amylase, lipase, UA) and imaging (CT A/P). Consider US, GES, and then PIPIDA as next steps. Will add PPI and Miralax. Okay to try clears after CT. ROSIE FISHMAN August 21, 2018 13:38
[2018-08-21 13:45] LABS: BASO # 0.1 x10^3/uL (0.0-0.2); BASO % 1 % (0-3); EOS % 0 % (0-3); HEMATOCRIT 43.1 % (39.0-53.0); HEMOGLOBIN 14.9 g/dL (13.0-17.5); LYMPH # 2.3 x10^3/uL (1.0-4.8); LYMPH % 22 % (24-48); MEAN CORPUSCULAR HEMOGLOBIN 33 pg (25-35); MEAN CORPUSCULAR HGB CONC 35 g/dL (31-37); MEAN CORPUSCULAR VOLUME 96 fL (79-100); MONO # 0.7 x10^3/uL (0.0-1.1); MONO % 7 % (0-9); NEUT # 7.6 x10^3uL (1.8-7.7); NEUT % 71 % (31-73); PLATELET COUNT 187 x10^3/uL (140-400); RED BLOOD COUNT 4.47 x10^6/uL (4.30-5.70); RED CELL DISTRIBUTION WIDTH 12.5 % (11.5-14.5); WHITE BLOOD COUNT 10.7 x10^3/uL (4.0-11.0)
[2018-08-21] MEDS ORDERED: IOHEXOL 300 MG/ML 100ML VIAL. IV ONE (13:45)
[2018-08-21] MEDS ORDERED: IOHEXOL 240 MG/ML 50ML VIAL. PO ONE (13:45)
[2018-08-21] MEDS ORDERED: CONTRAST GIVEN. MC PRN (13:45)
--- NOTE | 2018-08-21 13:45 | NUR ---
Pt arrived to unit at 1220, from Dr Ziegler's office. Admission Dx Abd Pain for several months getting worse for the past three days. Pt A&O x4, able to make needs known, up ad lorri. Allergies verified, bed in low position, call light in reach. Pt brought written orders from Dr Ziegler's office, this nurse acknowledged and processed orders, Pt NPO until seen by GI. Admission assessment in progress.
[2018-08-21 14:04] LABS: ALBUMIN 3.6 g/dL (3.4-5.0); ALBUMIN/GLOBULIN RATIO 0.8 (1.0-1.7); CALCIUM 9.4 mg/dL (8.5-10.1); CREATININE 1.2 mg/dL (0.7-1.3); GFR 68.1; POTASSIUM 3.7 mmol/L (3.5-5.1); TOTAL BILIRUBIN 0.8 mg/dL (0.2-1.0); TOTAL PROTEIN 7.9 g/dL (6.4-8.2)
[2018-08-21] MEDS ORDERED: POLYETHYLENE GLYCOL 3350 17 GM PACKET. PO PRN (14:15)
[2018-08-21] MEDS ORDERED: IBUP-1060 PO (14:32)
[2018-08-21] MEDS ORDERED: INSU200I SQ (14:32)
[2018-08-21] MEDS ORDERED: INSU100V37 SQ (14:32)
[2018-08-21] MEDS ORDERED: DEXTROSE 50% 25 GM / 50ML DISP.SYRIN. IV PRN (14:45)
[2018-08-21 15:00] VITALS: BP 127/81
[2018-08-21] MEDS: POLYETHYLENE GLYCOL 3350 17 GM PACKET. PO SCH (15:00)
[2018-08-21] MEDS ORDERED: IBUPROFEN 400 MG TABLET. PO PRN (15:15)
--- NOTE | 2018-08-21 15:21 | RAD ---
CT of the abdomen and pelvis with contrast, 08/21/2018: HISTORY: Upper abdominal pain Multidetector CT imaging was performed following oral and IV administration of contrast. Comparison is made to an exam from 09/28/2017. No hepatic abnormality is seen. The gallbladder is unremarkable. The pancreas shows no abnormality. The spleen is near the upper limits of normal in size. No renal or adrenal abnormality is detected. The abdominal aorta is unremarkable. No abdominal or pelvic adenopathy is seen. The bowel loops show no abnormality. The appendix is not visualized. No dilated appendix or pericecal inflammatory process is seen. No free fluid or free air is evident in the abdomen or pelvis. IMPRESSION: No acute abdominal or pelvic abnormality is detected. PQRS Compliance Statement: One or more of the following individualized dose reduction techniques were utilized for this examination: 1. Automated exposure control 2. Adjustment of the mA and/or kV according to patient size 3. Use of iterative reconstruction technique Electronically signed by: Jose Rosa MD (08/21/2018 3:18 PM) [facility]
[2018-08-21] MEDS: IV NORMAL SALINE 1000ML BAG 1,000 ML IV SCH (16:08)
[2018-08-21] MEDS: SUCRALFATE 1 GM TABLET. PO SCH ×2 (16:10→21:15)
[2018-08-21] MEDS: PANTOPRAZOLE 40 MG TABLET.DR. PO SCH (16:10)
[2018-08-21] MEDS: INSULIN LISPRO 300 UNITS/3 ML INSULN.PEN. SQ SCH (17:00)
[2018-08-21 18:35] LABS: BILIRUBIN,URINE SMALL (NEG); CLARITY,URINE CLEAR; COLOR,URINE YELLOW; NITRITE,URINE NEGATIVE (NEG); PROTEIN,URINE NEGATIVE (NEG-TRACE)
[2018-08-21 18:42] LABS: BACTERIA,URINE 0 /HPF (0-FEW); HYALINE CASTS, URINE FEW /HPF; RBC,URINE 0 /HPF (0-2); SQUAMOUS EPITHELIAL CELL,UR FEW /LPF; WBC,URINE 0 /HPF (0-4)
[2018-08-21 19:30] VITALS: BP 122/78
[2018-08-21] MEDS ORDERED: traZODone 100 MG TABLET. PO SCH (21:00)
[2018-08-21] MEDS: ATORVASTATIN CALCIUM 20 MG TABLET PO SCH (21:00)
[2018-08-21] MEDS: LURASIDONE 40 MG TABLET. PO SCH ×2 (21:00→21:15)
[2018-08-21] MEDS: INSULIN GLARGINE 300 UNITS/3 ML INSULN.PEN. SQ SCH (21:00)
[2018-08-21] MEDS: GABAPENTIN 300 MG CAPSULE. PO SCH (21:15)
[2018-08-21 23:37] VITALS: BP 127/79
--- NOTE | 2018-08-22 03:28 | RAD ---
Indication:Upper abdominal pain. TECHNIQUE: Grayscale, color Doppler and spectral waveform is of the abdomen obtained. COMPARISON:None FINDINGS: Pancreas not well visualized due to overlying bowel gas. IVC not visualized due to overlying bowel gas. Liver is normal in size measuring 16.3 cm in longest dimension diffuse increased echogenicity. Main portal vein is patent. No gallstones, pericholecystic fluid or gallbladder wall thickening. CBD measures 4 mm in diameter and is within normal limits. Right kidney measures 13 cm in length without hydronephrosis. IMPRESSION: 1. No cholelithiasis or sonographic evidence of acute cholecystitis. 2. Hepatic steatosis. Electronically signed by: Tom Valle DO (08/22/2018 3:25 AM) [facility]
[2018-08-22 03:49] VITALS: BP 128/82
[2018-08-22] MEDS: IV NORMAL SALINE 1000ML BAG 1,000 ML IV SCH ×2 (05:20→17:57)
[2018-08-22] MEDS: LEVOTHYROXINE 25 MCG TABLET. PO SCH (05:45)
[2018-08-22 06:01] LABS: CHOLESTEROL/HDL RATIO 4.6
[2018-08-22 07:00] VITALS: BP 125/80
[2018-08-22] MEDS: PANTOPRAZOLE 40 MG TABLET.DR. PO SCH ×2 (07:30→17:55)
[2018-08-22] MEDS: SUCRALFATE 1 GM TABLET. PO SCH ×4 (07:30→22:58)
[2018-08-22] MEDS: INSULIN LISPRO 300 UNITS/3 ML INSULN.PEN. SQ SCH ×3 (08:00→17:57)
[2018-08-22] MEDS: glipiZIDE ER 2.5 MG TAB.ER.24 PO SCH (08:00)
[2018-08-22] MEDS ORDERED: NON FORMULARY ITEM (Liraglutide (Victoza 3-Pak) 1.2 MG) SQ SCH (09:00)
[2018-08-22] MEDS: POLYETHYLENE GLYCOL 3350 17 GM PACKET. PO SCH (09:00)
[2018-08-22] MEDS ORDERED: NON FORMULARY ITEM (Omeprazole 1 CAP) PO SCH (09:00)
[2018-08-22] MEDS: LOSARTAN POTASSIUM 50 MG TABLET. PO SCH (09:00)
--- NOTE | 2018-08-22 09:13 | PDOC ---
Subjective: Subjective: Was asleep when I walked in, tray of clears untouched. "Still hasn't pain" - "just hurts." Said he had some juice last night because his sugar was low - tolerated. He doesn't know if his back still hurts - "I'd have to move to tell you." Objective: Vital Signs: Vital Signs Date Time Temp Pulse Resp B/P (MAP) Pulse Ox O2 Delivery O2 Flow Rate FiO2 08/22/18 03:49 97.8 84 16 128/82 (97) 93 Room Air 97.8 Labs: Laboratory Tests Test 08/21/18 13:35 08/21/18 17:08 08/21/18 18:24 08/21/18 21:19 White Blood Count 10.7 x10^3/uL Red Blood Count 4.47 x10^6/uL Hemoglobin 14.9 g/dL Hematocrit 43.1 % Mean Corpuscular Volume 96 fL Mean Corpuscular Hemoglobin 33 pg Mean Corpuscular Hemoglobin Concent 35 g/dL Red Cell Distribution Width 12.5 % Platelet Count 187 x10^3/uL Neutrophils (%) (Auto) 71 % Lymphocytes (%) (Auto) 22 % Monocytes (%) (Auto) 7 % Eosinophils (%) (Auto) 0 % Basophils (%) (Auto) 1 % Neutrophils # (Auto) 7.6 x10^3uL Lymphocytes # (Auto) 2.3 x10^3/uL Monocytes # (Auto) 0.7 x10^3/uL Eosinophils # (Auto) 0.0 x10^3/uL Basophils # (Auto) 0.1 x10^3/uL Sodium Level 139 mmol/L Potassium Level 3.7 mmol/L Chloride Level 100 mmol/L Carbon Dioxide Level 28 mmol/L Anion Gap 11 Blood Urea Nitrogen 16 mg/dL Creatinine 1.2 mg/dL Estimated GFR (Cockcroft-Gault) 68.1 BUN/Creatinine Ratio 13 Glucose Level 102 mg/dL Calcium Level 9.4 mg/dL Total Bilirubin 0.8 mg/dL Aspartate Amino Transf (AST/SGOT) 21 U/L Alanine Aminotransferase (ALT/SGPT) 25 U/L Alkaline Phosphatase 92 U/L Total Protein 7.9 g/dL Albumin 3.6 g/dL Albumin/Globulin Ratio 0.8 Amylase Level 45 U/L Lipase 181 U/L Glucose (Fingerstick) 80 mg/dL 69 mg/dL Urine Collection Type Unknown Urine Color Yellow Urine Clarity Clear Urine pH 5.0 Urine Specific [place] >=1.030 Urine Protein Negative mg/dL Urine Glucose (UA) Negative mg/dL Urine Ketones (Stick) Negative mg/dL Urine Blood Negative Urine Nitrite Negative Urine Bilirubin Small Urine Urobilinogen Dipstick 1.0 mg/dL Urine Leukocyte Esterase Negative Urine RBC 0 /HPF Urine WBC 0 /HPF Urine Squamous Epithelial Cells Few /LPF Urine Bacteria 0 /HPF Urine Hyaline Casts Few /HPF Urine Mucus Marked /LPF Test 08/21/18 22:08 08/22/18 04:10 08/22/18 07:32 Glucose (Fingerstick) 90 mg/dL 72 mg/dL Triglycerides Level 94 mg/dL Cholesterol Level 123 mg/dL LDL Cholesterol, Calculated 77 mg/dL VLDL Cholesterol, Calculated 19 mg/dL Non-HDL Cholesterol Calculated 96 mg/dL HDL Cholesterol 27 mg/dL Cholesterol/HDL Ratio 4.6 Thyroid Stimulating Hormone (TSH) 2.534 uIU/mL Imaging: CT A/P 08/21 IMPRESSION: No acute abdominal or pelvic abnormality is detected. RUQ US 08/21 IMPRESSION: 1. No cholelithiasis or sonographic evidence of acute cholecystitis. 2. Hepatic steatosis. PE: GEN: NAD - was sleeping LUNGS: CTAB HEART: RRR ABD: NABS, S/ND, mild/vague periumbilical discomfort NEURO/PSYCH: A & O 3 A/P: Recurrent abd pain GERD -- Labs, CT, and US unrevealing. Has been NPO, will order PIPIDA. GES next step. ROSIE FISHMAN August 22, 2018 09:13
--- NOTE | 2018-08-22 09:53 | PDOC ---
Provider Note Provider Note Pt seen.H&P dictated.#[id number]. MARY CHU MD August 22, 2018 09:53
[2018-08-22] MEDS ORDERED: ACETAMINOPHEN 500 MG TABLET PO PRN (10:00)
[2018-08-22] MEDS ORDERED: traMADol 50 MG TABLET PO PRN (10:00)
[2018-08-22] MEDS ORDERED: HYDROcodone/APAP 7.5/325MG 1 TAB TABLET PO PRN (10:00)
--- NOTE | 2018-08-22 10:11 | HP ---
ADMIT DATE: 08/21/2018 LOCATION: 418. REASON FOR ADMISSION TO THE HOSPITAL: Severe abdominal pain, nausea, vomiting, possible gallbladder attack. HISTORY OF PRESENT ILLNESS: The patient is a 38-year-old male. The patient is extremely obese and history of bipolar, hypothyroidism, diabetes, hypertension, hyperlipidemia. He was having abdominal pain, nausea, vomiting, went to the Emergency Room 2 days ago and says it was treated and discharged, still having lot of pain mostly in the epigastric area, sometimes to the right side and going to the lower back and the patient was admitted to the hospital for further investigations and treatment. PAST MEDICAL HISTORY: Diabetes, hypertension, hyperlipidemia, bipolar, obesity. PAST SURGICAL HISTORY: Tonsillectomy, tubes, inguinal hernias. ALLERGIES: No known drug allergies. FAMILY HISTORY: Positive for diabetes, heart disease. SOCIAL HISTORY: Denies smoking, alcohol or drug abuse. MEDICATIONS AT HOME: The patient is on atorvastatin 20 mg daily, gabapentin 300 mg at bedtime, glipizide 10 mg daily, ibuprofen 800 mg twice a day, insulin Tresiba 20 units at bedtime, NovoLog 10 units 3 times daily, levothyroxine 25 mcg daily, Victoza 1.2 mg subcutaneous daily, Latuda 40 mg at bedtime, metformin 1000 mg twice a day, omeprazole 40 mg daily, Carafate 1 gram 4 times daily, trazodone 100 mg at bedtime, Diovan 320 mg daily. REVIEW OF SYSTEMS: CARDIAC: No chest pain. GASTROINTESTINAL: Abdominal pain, nausea, vomiting, no blood in the stool. No vomitus. SKELETOMUSCULAR: Back pain. Denies any fever, weight loss, weight gain. Rest of the 14-system was reviewed and negative. PHYSICAL EXAMINATION: GENERAL: The patient is not getting any better in spite of the ER visit. VITAL SIGNS: Temperature 97, pulse 80, respirations 20, blood pressure 128/82, 93 on room air saturation. HEENT: Head is atraumatic. Pupils equal. Oral cavity white coating of the tongue. NECK: Supple. Thyroid not enlarged. JVD not elevated. CHEST: Symmetrical. CARDIOVASCULAR: S1, S2. LUNGS: Clear to auscultation. No wheezing. ABDOMEN: Tenderness in the epigastric area. No rebound. Bowel sounds present, no mass palpable. EXTERNAL GENITALIA: No More. RECTAL: Deferred. EXTREMITIES: No calf tenderness, no edema. Pulses 1+. NEUROLOGIC: Moving all extremities. No focal deficits noted. LABORATORY DATA: Shows a white count of 10, hemoglobin 15, platelets 187. Sodium 139, potassium 3.7, chloride 100, bicarbonate 28, anion gap 11, BUN 16, creatinine 1.2, glucose 102. LFTs were normal. Amylase 45, lipase 181, which is normal. Cholesterol is 123, LDL 77. TSH 2.5, normal range. Urine was negative for leukocytes and nitrites. Ultrasound of the abdomen shows no gallstones, fatty liver. CT scan of the abdomen and pelvis, no acute abnormality. FINAL IMPRESSION: 1. Abdominal pain, failure of outpatient treatment, had an ER visit already. 2. Diabetes, insulin-dependent. 3. Hypothyroidism. 4. Bipolar. 5. Morbid obesity. PLAN: At this time, was admit to hospital. GI is consulted. IV fluids, ultrasound of the abdomen, CT scan of the abdomen and pelvis, probably may need EGD and may be a PIPIDA scan for investigation. Also, while in the hospital, will have x-ray of the spine and rehab consult for back pain. MARY CHU MD DR: MICK/ace JOB#: [id number] / [id number]
--- NOTE | 2018-08-22 11:09 | NUR ---
SW following for discharge planning. Discussed with RN, pt is from home with brother and roommate, possibly on disability (per RN). Pt having a gastric emptying study today. RN advised no SW needs. SW will continue to follow.
[2018-08-22] MEDS ORDERED: LIDO:MAALOX 1:1 20 ML SINGLE DOSE. PO PRN (11:15)
[2018-08-22 13:00] VITALS: BP 125/80
--- NOTE | 2018-08-22 13:31 | RAD ---
Radionuclide hepatobiliary scan, 08/22/2018: HISTORY: Abdominal pain Following IV injection of 5.5 mCi of technetium 99m Choletec there was prompt uptake of the radionuclide from the blood stream by the liver. Activity is evident in the bile ducts and small bowel at 5 minutes. Gallbladder activity developed at 15 minutes. No gallbladder ejection fraction evaluation was requested. IMPRESSION: No evidence of cystic duct or common bile duct obstruction. Electronically signed by: Jose Rosa MD (08/22/2018 1:28 PM) [facility]
--- NOTE | 2018-08-22 13:45 | NUR ---
This nurse taking over for SILVINO Matthews. Pt A&Ox4, states he just got back from radiology. C/o abd pain 08/03, wondering about his test results. Denies need for pain meds at this time. Will continue to monitor.
--- NOTE | 2018-08-22 13:47 | RAD ---
LUMBAR SPINE MIN 4V History: Back pain Comparison: March 05, 2017 Findings: 3 views of the lumbar spine are submitted. Lumbar vertebral body stature and AP alignment are unchanged, within normal limits. Intervertebral disc spaces are overall maintained. No acute osseous abnormality is identified by radiographs. There is residual oral contrast in segments of nondilated colon. Impression: 1. No acute osseous abnormality is identified by radiographs. Electronically signed by: Nathen Ramos MD (08/22/2018 1:44 PM) [id number]
--- NOTE | 2018-08-22 13:51 | RAD ---
THORACIC SPINE 3V History: Back pain Comparison: None. Findings: 3 views thoracic spine are submitted. Thoracic vertebral body stature and AP alignment are maintained. No acute osseous abnormality is identified by radiographs. Intervertebral disc spaces are relatively preserved. Impression: 1. No acute osseous abnormality is identified by radiographs. Electronically signed by: Nathen Ramos MD (08/22/2018 1:48 PM) [id number]
--- NOTE | 2018-08-22 14:28 | RAD ---
Single AP view the pelvis and frog-leg view of the right hip without comparison for limited external rotation of the right hip joint. FINDINGS: There is no fracture, dislocation, or acute osseous abnormality identified. No significant degenerative changes. No radiopaque foreign bodies. IMPRESSION: 1. No acute osseous abnormality of the pelvis or right hip. Electronically signed by: David Teixeira MD (08/22/2018 2:25 PM) [id number]
[2018-08-22 15:00] VITALS: BP 117/76
[2018-08-22 19:00] VITALS: BP 142/74
[2018-08-22] MEDS: INSULIN GLARGINE 300 UNITS/3 ML INSULN.PEN. SQ SCH (21:00)
[2018-08-22] MEDS: LURASIDONE 40 MG TABLET. PO SCH (21:14)
[2018-08-22] MEDS: ATORVASTATIN CALCIUM 20 MG TABLET PO SCH (21:14)
[2018-08-22] MEDS: GABAPENTIN 300 MG CAPSULE. PO SCH (21:14)
[2018-08-22 23:00] VITALS: BP 125/63
[2018-08-23 03:00] VITALS: BP 116/63
--- NOTE | 2018-08-23 03:06 | CONS ---
DATE OF CONSULTATION: 08/22/2018 ATTENDING PHYSICIAN: Dr. Ziegler. The patient was seen at the request of Dr. Ziegler for rehab evaluation about his mid back area pain. HISTORY OF PRESENT ILLNESS: This is a 38-year-old right-handed male with problems with gastroesophageal reflux disease, diabetes mellitus with peripheral neuropathy, hyperlipidemia, hypertension, ADHD, bipolar disorder, obesity, umbilical and bilateral inguinal hernias. The patient is on disability. The patient was admitted after being seen by Dr. Ziegler, family physician's office, with abdominal pain going on for about 2-3 days. The patient was treated for the same problem in the past. He apparently had constipation, which was relieved. Patient admits some left-sided mid back area pain. The patient denies any specific injury or accident. He admits some numbness in his feet. FAMILY HISTORY: Coronary artery disease, diabetes mellitus and hypertension. He is not known allergic to any medication. He lives with his brother and friends, had stairs for him to manage. The patient is independent with his mobility and most of the aspects of his self-care prior to the present hospitalization. PHYSICAL EXAMINATION: Today revealed young male, patient is alert, oriented to time, place, person and circumstance and follows commands appropriately. He is obese. He had pain free range of motion of the thoracic and lumbar spine, tenderness to palpation over left mid thoracic paraspinal muscles. Straight leg raising test is negative bilaterally. He had some limitation of external rotation at right hip. Also, minimal tenderness to palpation over right sacroiliac joint area. He had 5/5 grade muscle strength in his extremities and deep tendon reflexes are 1 to 2+ and symmetrical with absent ankle jerks. The patient is independent with his mobility and self-care task. His skin is intact at this time. ASSESSMENT: The patient with chronic left mid thoracic paraspinal muscle strain, also some problems with degenerative disk disease of lumbar vertebrae without any clinical evidence of ongoing lumbar radiculopathy and some limitation of external rotation at right hip without any pain. The patient with known diabetes mellitus with peripheral neuropathy, hypertension, hyperlipidemia, gastroesophageal reflux disease, ADHD, bipolar disorder, obesity, umbilical and bilateral inguinal hernias. RECOMMENDATION: To try physical modalities to help with his back pain. Home when medically stable with outpatient followup. Dr. Ziegler, I appreciate asking me to participate in the care of this interesting patient. I will be glad to follow him with you as needed for the rehabilitation. KIM ESCOBEDO MD DR: MAN/ace JOB#: [id number] / [id number]
[2018-08-23] MEDS: LEVOTHYROXINE 25 MCG TABLET. PO SCH (05:48)
[2018-08-23] MEDS: IV NORMAL SALINE 1000ML BAG 1,000 ML IV SCH (06:46)
[2018-08-23 07:00] VITALS: BP 128/72
[2018-08-23] MEDS: PANTOPRAZOLE 40 MG TABLET.DR. PO SCH ×2 (07:46→16:22)
[2018-08-23] MEDS: SUCRALFATE 1 GM TABLET. PO SCH ×4 (07:46→19:36)
[2018-08-23] MEDS: INSULIN LISPRO 300 UNITS/3 ML INSULN.PEN. SQ SCH ×3 (07:47→17:00)
[2018-08-23] MEDS: glipiZIDE ER 2.5 MG TAB.ER.24 PO SCH (08:42)
[2018-08-23] MEDS: LOSARTAN POTASSIUM 50 MG TABLET. PO SCH (08:43)
[2018-08-23] MEDS: POLYETHYLENE GLYCOL 3350 17 GM PACKET. PO SCH (08:43)
--- NOTE | 2018-08-23 09:17 | PDOC ---
PROGRESS NOTES Subjective Subjective He c/o low back pain this AM. Objective Objective Vital Signs Date Time Temp Pulse Resp B/P (MAP) Pulse Ox O2 Delivery O2 Flow Rate FiO2 08/23/18 08:43 62 128/72 08/23/18 07:00 98.0 18 96 Room Air 98.0 Intake and Output 08/23/18 06:59 Intake Total 120 ml Balance 120 ml Intake Oral 120 ml # Voids 6 Physical Exam Physical Exam He is alert and supine in bed playing video games on TV. He had minimal tenderness to palpation over right sacroiliac joint,that indicates that he may have DDD of lumbar vertebrae. This might be responsible for limitation of right hip joint external rotation. X-ray of right hip and pelvis was WNL. He remains independent with his mobility and self care.He does not like use of ice or heating pad.I have advised him about proper body mechanics during mobility. Plan Plan of Custodial when medically stable. He does not require any injections to his right sacroiliac joint at this time. Comment Review of Relevant I have reviewed the following items jameel (where applicable) has been applied. Labs Laboratory Tests Test 08/21/18 13:35 08/21/18 17:08 08/21/18 18:24 08/21/18 21:19 White Blood Count 10.7 x10^3/uL (4.0-11.0) Red Blood Count 4.47 x10^6/uL (4.30-5.70) Hemoglobin 14.9 g/dL (13.0-17.5) Hematocrit 43.1 % (39.0-53.0) Mean Corpuscular Volume 96 fL (79-100) Mean Corpuscular Hemoglobin 33 pg (25-35) Mean Corpuscular Hemoglobin Concent 35 g/dL (31-37) Red Cell Distribution Width 12.5 % (11.5-14.5) Platelet Count 187 x10^3/uL (140-400) Neutrophils (%) (Auto) 71 % (31-73) Lymphocytes (%) (Auto) 22 % (24-48) Monocytes (%) (Auto) 7 % (0-9) Eosinophils (%) (Auto) 0 % (0-3) Basophils (%) (Auto) 1 % (0-3) Neutrophils # (Auto) 7.6 x10^3uL (1.8-7.7) Lymphocytes # (Auto) 2.3 x10^3/uL (1.0-4.8) Monocytes # (Auto) 0.7 x10^3/uL (0.0-1.1) Eosinophils # (Auto) 0.0 x10^3/uL (0.0-0.7) Basophils # (Auto) 0.1 x10^3/uL (0.0-0.2) Sodium Level 139 mmol/L (136-145) Potassium Level 3.7 mmol/L (3.5-5.1) Chloride Level 100 mmol/L (98-107) Carbon Dioxide Level 28 mmol/L (21-32) Anion Gap 11 (6-14) Blood Urea Nitrogen 16 mg/dL (8-26) Creatinine 1.2 mg/dL (0.7-1.3) Estimated GFR (Cockcroft-Gault) 68.1 BUN/Creatinine Ratio 13 (6-20) Glucose Level 102 mg/dL (70-99) Calcium Level 9.4 mg/dL (8.5-10.1) Total Bilirubin 0.8 mg/dL (0.2-1.0) Aspartate Amino Transf (AST/SGOT) 21 U/L (15-37) Alanine Aminotransferase (ALT/SGPT) 25 U/L (16-63) Alkaline Phosphatase 92 U/L (46-116) Total Protein 7.9 g/dL (6.4-8.2) Albumin 3.6 g/dL (3.4-5.0) Albumin/Globulin Ratio 0.8 (1.0-1.7) Amylase Level 45 U/L (25-115) Lipase 181 U/L (73-393) Glucose (Fingerstick) 80 mg/dL (70-99) 69 mg/dL (70-99) Urine Collection Type Unknown Urine Color Yellow Urine Clarity Clear Urine pH 5.0 Urine Specific [place] >=1.030 Urine Protein Negative mg/dL (NEG-TRACE) Urine Glucose (UA) Negative mg/dL (NEG) Urine Ketones (Stick) Negative mg/dL (NEG) Urine Blood Negative (NEG) Urine Nitrite Negative (NEG) Urine Bilirubin Small (NEG) Urine Urobilinogen Dipstick 1.0 mg/dL (0.2 mg/dL) Urine Leukocyte Esterase Negative (NEG) Urine RBC 0 /HPF (0-2) Urine WBC 0 /HPF (0-4) Urine Squamous Epithelial Cells Few /LPF Urine Bacteria 0 /HPF (0-FEW) Urine Hyaline Casts Few /HPF Urine Mucus Marked /LPF Test 08/21/18 22:08 08/22/18 04:10 08/22/18 07:32 08/22/18 16:56 Glucose (Fingerstick) 90 mg/dL (70-99) 72 mg/dL (70-99) 83 mg/dL (70-99) Hemoglobin A1c 6.0 % (4.8-5.6) Triglycerides Level 94 mg/dL (0-150) Cholesterol Level 123 mg/dL (0-200) LDL Cholesterol, Calculated 77 mg/dL (0-100) VLDL Cholesterol, Calculated 19 mg/dL (0-40) Non-HDL Cholesterol Calculated 96 mg/dL (0-129) HDL Cholesterol 27 mg/dL (40-60) Cholesterol/HDL Ratio 4.6 Thyroid Stimulating Hormone (TSH) 2.534 uIU/mL (0.358-3.74) Test 08/22/18 20:58 08/23/18 07:12 Glucose (Fingerstick) 79 mg/dL (70-99) 90 mg/dL (70-99) Laboratory Tests Test 08/22/18 16:56 08/22/18 20:58 08/23/18 07:12 Glucose (Fingerstick) 83 mg/dL (70-99) 79 mg/dL (70-99) 90 mg/dL (70-99) Medications Current Medications Sodium Chloride (Normal Saline Flush) 3 ml PRN DAILY PRN IV AFTER MEDS AND BLOOD DRAWS; Start 08/21/18 at 13:00 Iohexol (Omnipaque 240 Mg/ml) 30 ml 1X ONCE PO Last administered on 08/21/18at 13:45; Start 08/21/18 at 13:45; Stop 08/21/18 at 13:46; Status DC Iohexol (Omnipaque 300 Mg/ml) 75 ml 1X ONCE IV Last administered on 08/21/18at 13:45; Start 08/21/18 at 13:45; Stop 08/21/18 at 13:46; Status DC Info (CONTRAST GIVEN -- Rx MONITORING) 1 each PRN DAILY PRN MC SEE COMMENTS; Start 08/21/18 at 13:45; Stop 08/23/18 at 13:44 Pantoprazole Sodium (Protonix) 40 mg BIDAC PO Last administered on 08/23/18at 07:46; Start 08/21/18 at 16:30 Polyethylene Glycol (miraLAX PACKET) 17 gm DAILY PO ; Start 08/21/18 at 15:00 Polyethylene Glycol (miraLAX PACKET) 17 gm PRN DAILY PRN PO CONSTIPATION; Start 08/21/18 at 14:15 Sodium Chloride 1,000 ml @ 75 mls/hr [id number] IV Last administered on 08/23/18at 06:46; Start 08/21/18 at 14:45 Dextrose (Dextrose 50%-Water Syringe) 12.5 gm PRN Q15MIN PRN IV SEE COMMENTS; Start 08/21/18 at 14:45 Atorvastatin Calcium (Lipitor) 20 mg HS PO Last administered on 08/22/18at 21:14; Start 08/21/18 at 21:00 Gabapentin (Neurontin) 300 mg HS PO Last administered on 08/22/18at 21:14; Start 08/21/18 at 21:00 Lurasidone HCl (Latuda) 40 mg QHS PO Last administered on 08/22/18at 21:14; Start 08/21/18 at 21:00 Trazodone HCl (Desyrel) 100 mg QHS PO Last administered on 08/21/18at 21:15; Start 08/21/18 at 21:00; Stop 08/22/18 at 10:04; Status DC Glipizide (Glucotrol Er) 10 mg DAILY08 PO Last administered on 08/23/18at 08:42; Start 08/22/18 at 08:00 Ibuprofen (Motrin) 800 mg PRN BID PRN PO INFLAMMATION Last administered on 08/21/18at 21:14; Start 08/21/18 at 15:15; Stop 08/22/18 at 10:04; Status DC Insulin Glargine (Lantus) 20 units QHS SQ ; Start 08/21/18 at 21:00 Insulin Human Lispro (HumaLOG) 10 units TIDWMEALS SQ ; Start 08/21/18 at 17:00 Levothyroxine Sodium (Synthroid) 25 mcg DAILY06 PO Last administered on 08/22/18at 05:45; Start 08/22/18 at 06:00 Non-Formulary Medication (Liraglutide (Victoza 3-Arnaldo)) 1.2 mg DAILY SQ ; Start 08/22/18 at 09:00; Status UNV Metformin HCl (Glucophage) 1,000 mg BIDWMEALS PO ; Start 08/23/18 at 17:00 Non-Formulary Medication (Omeprazole ) 1 cap DAILY PO ; Start 08/22/18 at 09:00; Status UNV Sucralfate (Carafate) 1 gm QIDACHS PO Last administered on 08/23/18at 07:46; Start 08/21/18 at 16:30 Losartan Potassium (Cozaar) 100 mg DAILY PO ; Start 08/22/18 at 09:00 Acetaminophen (Tylenol) 1,000 mg PRN Q6HRS PRN PO MILD PAIN 1-3; Start 08/22/18 at 10:00 Tramadol HCl (Ultram) 100 mg PRN Q6HRS PRN PO MODERATE PAIN; Start 08/22/18 at 10:00 Acetaminophen/ Hydrocodone Bitart (Lortab 7.5/325) 1 tab PRN Q6HRS PRN PO SEVERE PAIN; Start 08/22/18 at 10:00 Multi-Ingredient Mouthwash/Gargle (Gi Cocktail) 20 ml PRN Q2HR PRN PO GI SYMPTOMS Last administered on 08/22/18at 15:04; Start 08/22/18 at 11:15 Active Scripts Active Reported Tresiba (Insulin Degludec) 100 Unit/1 Ml Vial 20 Unit SQ HS Ibuprofen 800 Mg Tablet 800 Mg PO PRN BID PRN Levothyroxine Sodium 25 Mcg Tablet 1 Tab PO DAILY Carafate (Sucralfate) 1 Gm Tablet 1 Tab PO QID Metformin Hcl Er (Metformin Hcl) 1,000 Mg Tab.er.24 1,000 Mg PO BIDBFRMEAL Victoza 3-Arnaldo (Liraglutide) 0.6 Mg/0.1 Ml Pen.injctr 1.2 Mg SQ DAILY Glipizide Er (Glipizide) 10 Mg Tab.er.24 1 Tab PO DAILY Atorvastatin Calcium 20 Mg Tablet 20 Mg PO HS Gabapentin (Gabapentin) 300 Mg Capsule 300 Mg PO HS Trazodone Hcl 100 Mg Tablet 100 Mg PO QHS Latuda (Lurasidone Hcl) 40 Mg Tablet 1 Tab PO QHS Diovan (Valsartan) 320 Mg Tablet 320 Mg PO DAILY Omeprazole 40 Mg Capsule.dr 1 Cap PO DAILY Humalog Kwikpen (Insulin Lispro) 200 Unit/1 Ml Insuln.pen 10 Unit SQ TIDWMEALS Vitals/I & O Vital Sign - Last 24 Hours 08/22/18 08/22/18 08/22/18 08/22/18 15:00 19:00 20:00 23:00 Temp 98.0 98.1 97.7 98.0 98.1 97.7 Pulse 71 64 69 Resp 18 18 18 B/P (MAP) 117/76 (90) 142/74 (96) 125/63 (83) Pulse Ox 96 94 95 O2 Delivery Room Air Room Air Room Air Room Air 08/23/18 08/23/18 08/23/18 03:00 07:00 08:43 Temp 98.1 98.0 98.1 98.0 Pulse 68 62 62 Resp 18 18 B/P (MAP) 116/63 (80) 128/72 (90) 128/72 Pulse Ox 97 96 O2 Delivery Room Air Room Air Intake and Output 08/22/18 08/22/18 08/23/18 14:59 22:59 06:59 Intake Total 120 ml Balance 120 ml Nutrition Consultation Dietary Evaluation: Recommendations by RD: Increase Calorie Intake, Protein supplementation Comments: REC adv diet to ADA, Cardiac when able Expected Outcomes/Goals: to meet > 75% est nutr needs Interpretation of weight loss: >1-2% in 1 week Malnutrition Findings: Food and Nutrition Intake (Mod: <75% est energy req 7days Weight Status: Obese KIM ESCOBEDO MD August 23, 2018 09:17
--- NOTE | 2018-08-23 09:41 | PDOC ---
PROGRESS NOTES Subjective Subjective still has pain in abdomen Objective Objective Vital Signs Date Time Temp Pulse Resp B/P (MAP) Pulse Ox O2 Delivery O2 Flow Rate FiO2 08/23/18 08:43 62 128/72 08/23/18 07:00 98.0 18 96 Room Air 98.0 Intake and Output 08/23/18 06:59 Intake Total 120 ml Balance 120 ml Intake Oral 120 ml # Voids 6 Physical Exam Abdomen: Soft Heart: Regular rate, Normal S1, Normal S2 Extremities: No clubbing General: Alert HEENT: Atraumatic Lungs: Clear to auscultation MUSCULOSKELETAL: No swelling Neck: Supple Neuro: Normal speech Psych/Mental Status: Mental status NL Skin: No breakdown Assessment Assessment FINAL IMPRESSION: 1. Abdominal pain, failure of outpatient treatment, had an ER visit already. 2. Diabetes, insulin-dependent. 3. Hypothyroidism. 4. Bipolar. 5. Morbid obesity. PLAN: sonogram neg ct scan neg billiary scan neg. lab shalom xray neg EGD 2018,gastritis . GES . home tomorrow. At this time, was admit to hospital. GI is consulted. IV fluids, ultrasound of the abdomen, CT scan of the abdomen and pelvis, probably may need EGD and may be a PIPIDA scan for investigation. Also, while in the hospital, will have x-ray of the spine and rehab consult for back pain. Comment Review of Relevant I have reviewed the following items jameel (where applicable) has been applied. Labs Laboratory Tests Test 08/22/18 16:56 08/22/18 20:58 08/23/18 07:12 Glucose (Fingerstick) 83 mg/dL (70-99) 79 mg/dL (70-99) 90 mg/dL (70-99) Medications Current Medications Acetaminophen (Tylenol) 1,000 mg PRN Q6HRS PRN PO MILD PAIN 1-3; Start 08/22/18 at 10:00 Acetaminophen/ Hydrocodone Bitart (Lortab 7.5/325) 1 tab PRN Q6HRS PRN PO SEVERE PAIN; Start 08/22/18 at 10:00 Metformin HCl (Glucophage) 1,000 mg BIDWMEALS PO ; Start 08/23/18 at 17:00 Multi-Ingredient Mouthwash/Gargle (Gi Cocktail) 20 ml PRN Q2HR PRN PO GI SYMPTOMS Last administered on 08/22/18at 15:04; Start 08/22/18 at 11:15 Tramadol HCl (Ultram) 100 mg PRN Q6HRS PRN PO MODERATE PAIN; Start 08/22/18 at 10:00 Vitals/I & O Vital Sign - Last 24 Hours 08/22/18 08/22/18 08/22/18 08/22/18 15:00 19:00 20:00 23:00 Temp 98.0 98.1 97.7 98.0 98.1 97.7 Pulse 71 64 69 Resp 18 18 18 B/P (MAP) 117/76 (90) 142/74 (96) 125/63 (83) Pulse Ox 96 94 95 O2 Delivery Room Air Room Air Room Air Room Air 08/23/18 08/23/18 08/23/18 03:00 07:00 08:43 Temp 98.1 98.0 98.1 98.0 Pulse 68 62 62 Resp 18 18 B/P (MAP) 116/63 (80) 128/72 (90) 128/72 Pulse Ox 97 96 O2 Delivery Room Air Room Air Intake and Output 08/22/18 08/22/18 08/23/18 14:59 22:59 06:59 Intake Total 120 ml Balance 120 ml Nutrition Consultation Dietary Evaluation: Recommendations by RD: Increase Calorie Intake, Protein supplementation Comments: REC adv diet to ADA, Cardiac when able Expected Outcomes/Goals: to meet > 75% est nutr needs Interpretation of weight loss: >1-2% in 1 week Malnutrition Findings: Food and Nutrition Intake (Mod: <75% est energy req 7days Weight Status: Obese MARY CHU MD August 23, 2018 09:40
[2018-08-23 11:25] VITALS: BP 115/75
--- NOTE | 2018-08-23 12:38 | PDOC ---
Subjective: Subjective: Feels the same, pain is the same. Tolerates clears - "I know it will be worse if I eat real food" - would like to try full liquids. Objective: Objective: GES rescheduled for tomorrow. Vital Signs: Vital Signs Date Time Temp Pulse Resp B/P (MAP) Pulse Ox O2 Delivery O2 Flow Rate FiO2 08/23/18 11:25 98.1 75 18 115/75 (88) 94 Room Air 98.1 Labs: Laboratory Tests Test 08/22/18 16:56 08/22/18 20:58 08/23/18 07:12 08/23/18 11:02 Glucose (Fingerstick) 83 mg/dL (70-99) 79 mg/dL (70-99) 90 mg/dL (70-99) 120 mg/dL (70-99) Imaging: HIDA IMPRESSION: No evidence of cystic duct or common bile duct obstruction. T and L spine x-rays Unrevealing. PE: GEN: NAD, sitting up in bed, appears comfortable LUNGS: CTAB HEART: RRR ABD: does not seem tender NEURO/PSYCH: A & O 3 A/P: Recurrent abd pain GERD -- Try full liquids. GES tomorrow. Continue PPI. ROSIE FISHMAN August 23, 2018 12:38
--- NOTE | 2018-08-23 12:52 | NUR ---
SW following for discharge planning. Discussed with RN, pt having a gastric emptying study tomorrow, possible discharge tomorrow. RN advised no SW needs at this time. SW will continue to follow.
[2018-08-23 15:22] VITALS: BP 114/69
[2018-08-23] MEDS: metFORMIN 500 MG TABLET PO SCH (17:00)
[2018-08-23 19:00] VITALS: BP 125/69
[2018-08-23] MEDS: LURASIDONE 40 MG TABLET. PO SCH (20:51)
[2018-08-23] MEDS: GABAPENTIN 300 MG CAPSULE. PO SCH (20:51)
[2018-08-23] MEDS: ATORVASTATIN CALCIUM 20 MG TABLET PO SCH (20:51)
[2018-08-23] MEDS: INSULIN GLARGINE 300 UNITS/3 ML INSULN.PEN. SQ SCH (20:52)
[2018-08-23 22:00] VITALS: BP_SYST 125; BP_SYST 127; BP_DIAS 55; BP_DIAS 76
[2018-08-24 03:00] VITALS: BP 131/61
[2018-08-24] MEDS: LEVOTHYROXINE 25 MCG TABLET. PO SCH (05:55)
[2018-08-24 07:00] VITALS: BP 136/86
[2018-08-24] MEDS: PANTOPRAZOLE 40 MG TABLET.DR. PO SCH (07:14)
[2018-08-24] MEDS: SUCRALFATE 1 GM TABLET. PO SCH ×2 (07:14→11:30)
[2018-08-24] MEDS: glipiZIDE ER 2.5 MG TAB.ER.24 PO SCH (07:14)
[2018-08-24] MEDS: metFORMIN 500 MG TABLET PO SCH (07:14)
[2018-08-24] MEDS: LOSARTAN POTASSIUM 50 MG TABLET. PO SCH (07:15)
[2018-08-24] MEDS: POLYETHYLENE GLYCOL 3350 17 GM PACKET. PO SCH (07:15)
[2018-08-24] MEDS: INSULIN LISPRO 300 UNITS/3 ML INSULN.PEN. SQ SCH (07:49)
--- NOTE | 2018-08-24 09:08 | NUR ---
SW following. Discussed with RN, pt is having a gastric emptying study today. RN advised no SW needs at this time. SW will continue to follow.
--- NOTE | 2018-08-24 09:29 | PDOC ---
PROGRESS NOTES Subjective Subjective not in distress,watching TV Objective Objective Vital Signs Date Time Temp Pulse Resp B/P (MAP) Pulse Ox O2 Delivery O2 Flow Rate FiO2 08/24/18 07:00 97.7 89 18 136/86 (103) 97 Room Air 97.7 Intake and Output 08/24/18 06:59 Intake Total 1140 ml Balance 1140 ml Intake Oral 1140 ml # Voids 3 # Bowel Movements 1 Physical Exam Abdomen: Soft Heart: Regular rate, Normal S1, Normal S2 Extremities: No clubbing General: Alert HEENT: Atraumatic Lungs: Clear to auscultation MUSCULOSKELETAL: No swelling Neck: Supple Neuro: Normal speech Psych/Mental Status: Mental status NL Skin: No breakdown Assessment Assessment FINAL IMPRESSION: 1. Abdominal pain, failure of outpatient treatment, had an ER visit already. 2. Diabetes, insulin-dependent. 3. Hypothyroidism. 4. Bipolar. 5. Morbid obesity. PLAN: spoke with GI Gastric emptying test today sonogram neg ct scan neg billiary scan neg. lab shalom xray neg EGD 2018,gastritis . GES . home today At this time, was admit to hospital. GI is consulted. IV fluids, ultrasound of the abdomen, CT scan of the abdomen and pelvis, probably may need EGD and may be a PIPIDA scan for investigation. Also, while in the hospital, will have x-ray of the spine and rehab consult for back pain. Comment Review of Relevant I have reviewed the following items jameel (where applicable) has been applied. Labs Laboratory Tests Test 08/23/18 11:02 08/23/18 17:01 08/23/18 17:22 08/23/18 20:44 Glucose (Fingerstick) 120 mg/dL (70-99) 55 mg/dL (70-99) 82 mg/dL (70-99) 77 mg/dL (70-99) Test 08/24/18 07:44 Glucose (Fingerstick) 90 mg/dL (70-99) Medications Current Medications Metformin HCl (Glucophage) 1,000 mg BIDWMEALS PO ; Start 08/23/18 at 17:00 Vitals/I & O Vital Sign - Last 24 Hours 08/23/18 08/23/18 08/23/18 08/23/18 11:25 15:22 19:00 20:06 Temp 98.1 97.8 97.8 98.1 97.8 97.8 Pulse 75 72 59 Resp 18 18 18 B/P (MAP) 115/75 (88) 114/69 (84) 125/69 (87) Pulse Ox 94 98 92 O2 Delivery Room Air Room Air Room Air Room Air 08/23/18 08/24/18 08/24/18 22:00 03:00 07:00 Temp 97.2 97.5 97.7 97.2 97.5 97.7 Pulse 57 76 89 Resp 18 B/P (MAP) 125/76 (92) 131/61 (84) 136/86 (103) Pulse Ox 96 95 97 O2 Delivery Room Air Room Air Room Air Intake and Output 08/23/18 08/23/18 08/24/18 14:59 22:59 06:59 Intake Total 1140 ml Balance 1140 ml Nutrition Consultation Dietary Evaluation: Recommendations by RD: Increase Calorie Intake, Protein supplementation Comments: REC adv diet to ADA, Cardiac when able Expected Outcomes/Goals: to meet > 75% est nutr needs Interpretation of weight loss: >1-2% in 1 week Malnutrition Findings: Food and Nutrition Intake (Mod: <75% est energy req 7days Weight Status: Obese MARY CHU MD August 24, 2018 09:29
--- NOTE | 2018-08-24 10:07 | PDOC ---
PROGRESS NOTES Subjective Subjective He admits mid back pain today. Objective Objective Vital Signs Date Time Temp Pulse Resp B/P (MAP) Pulse Ox O2 Delivery O2 Flow Rate FiO2 08/24/18 08:00 Room Air 08/24/18 07:00 97.7 89 18 136/86 (103) 97 97.7 Intake and Output 08/24/18 06:59 Intake Total 1140 ml Balance 1140 ml Intake Oral 1140 ml # Voids 3 # Bowel Movements 1 Physical Exam Physical Exam He had minimal tenderness to palpation over mid thoracic paraspinal muscles and over sacroiliac joints and he remains independent with his mobility and self care. Plan Plan of Care I have again reviewed with him home exercise program and proper body mechanics t o be done on a regular basis. Comment Review of Relevant I have reviewed the following items jameel (where applicable) has been applied. Labs Laboratory Tests Test 08/22/18 16:56 08/22/18 20:58 08/23/18 07:12 08/23/18 11:02 Glucose (Fingerstick) 83 mg/dL (70-99) 79 mg/dL (70-99) 90 mg/dL (70-99) 120 mg/dL (70-99) Test 08/23/18 17:01 08/23/18 17:22 08/23/18 20:44 08/24/18 07:44 Glucose (Fingerstick) 55 mg/dL (70-99) 82 mg/dL (70-99) 77 mg/dL (70-99) 90 mg/dL (70-99) Laboratory Tests Test 08/23/18 11:02 08/23/18 17:01 08/23/18 17:22 08/23/18 20:44 Glucose (Fingerstick) 120 mg/dL (70-99) 55 mg/dL (70-99) 82 mg/dL (70-99) 77 mg/dL (70-99) Test 08/24/18 07:44 Glucose (Fingerstick) 90 mg/dL (70-99) Medications Current Medications Sodium Chloride (Normal Saline Flush) 3 ml PRN DAILY PRN IV AFTER MEDS AND BLOOD DRAWS; Start 08/21/18 at 13:00 Iohexol (Omnipaque 240 Mg/ml) 30 ml 1X ONCE PO Last administered on 08/21/18at 13:45; Start 08/21/18 at 13:45; Stop 08/21/18 at 13:46; Status DC Iohexol (Omnipaque 300 Mg/ml) 75 ml 1X ONCE IV Last administered on 08/21/18at 13:45; Start 08/21/18 at 13:45; Stop 08/21/18 at 13:46; Status DC Info (CONTRAST GIVEN -- Rx MONITORING) 1 each PRN DAILY PRN MC SEE COMMENTS; Start 08/21/18 at 13:45; Stop 08/23/18 at 13:44; Status DC Pantoprazole Sodium (Protonix) 40 mg BIDAC PO Last administered on 08/23/18at 16:22; Start 08/21/18 at 16:30 Polyethylene Glycol (miraLAX PACKET) 17 gm DAILY PO ; Start 08/21/18 at 15:00 Polyethylene Glycol (miraLAX PACKET) 17 gm PRN DAILY PRN PO CONSTIPATION; Start 08/21/18 at 14:15 Sodium Chloride 1,000 ml @ 75 mls/hr [id number] IV Last administered on 08/23/18at 06:46; Start 08/21/18 at 14:45; Stop 08/23/18 at 09:44; Status DC Dextrose (Dextrose 50%-Water Syringe) 12.5 gm PRN Q15MIN PRN IV SEE COMMENTS; Start 08/21/18 at 14:45 Atorvastatin Calcium (Lipitor) 20 mg HS PO Last administered on 08/23/18at 20:51; Start 08/21/18 at 21:00 Gabapentin (Neurontin) 300 mg HS PO Last administered on 08/23/18 20:51; Start 08/21/18 at 21:00 Lurasidone HCl (Latuda) 40 mg QHS PO Last administered on 08/23/18at 20:51; Start 08/21/18 at 21:00 Trazodone HCl (Desyrel) 100 mg QHS PO Last administered on 08/21/18at 21:15; Start 08/21/18 at 21:00; Stop 08/22/18 at 10:04; Status DC Glipizide (Glucotrol Er) 10 mg DAILY08 PO Last administered on 08/23/18at 08:42; Start 08/22/18 at 08:00 Ibuprofen (Motrin) 800 mg PRN BID PRN PO INFLAMMATION Last administered on 08/21/18at 21:14; Start 08/21/18 at 15:15; Stop 08/22/18 at 10:04; Status DC Insulin Glargine (Lantus) 20 units QHS SQ ; Start 08/21/18 at 21:00 Insulin Human Lispro (HumaLOG) 10 units TIDWMEALS SQ ; Start 08/21/18 at 17:00 Levothyroxine Sodium (Synthroid) 25 mcg DAILY06 PO Last administered on 08/22/18at 05:45; Start 08/22/18 at 06:00 Non-Formulary Medication (Liraglutide (Victoza 3-Arnaldo)) 1.2 mg DAILY SQ ; Start 08/22/18 at 09:00; Status UNV Metformin HCl (Glucophage) 1,000 mg BIDWMEALS PO ; Start 08/23/18 at 17:00 Non-Formulary Medication (Omeprazole ) 1 cap DAILY PO ; Start 08/22/18 at 09:00; Status UNV Sucralfate (Carafate) 1 gm QIDACHS PO Last administered on 08/23/18at 19:36; Start 08/21/18 at 16:30 Losartan Potassium (Cozaar) 100 mg DAILY PO ; Start 08/22/18 at 09:00 Acetaminophen (Tylenol) 1,000 mg PRN Q6HRS PRN PO MILD PAIN 1-3; Start 08/22/18 at 10:00 Tramadol HCl (Ultram) 100 mg PRN Q6HRS PRN PO MODERATE PAIN; Start 08/22/18 at 10:00 Acetaminophen/ Hydrocodone Bitart (Lortab 7.5/325) 1 tab PRN Q6HRS PRN PO SEVERE PAIN; Start 08/22/18 at 10:00 Multi-Ingredient Mouthwash/Gargle (Gi Cocktail) 20 ml PRN Q2HR PRN PO GI S YMPTOMS Last administered on 08/22/18at 15:04; Start 08/22/18 at 11:15 Active Scripts Active Reported Humalog Kwikpen (Insulin Lispro) 200 Unit/1 Ml Insuln.pen 10 Unit SQ TIDWMEALS Tresiba (Insulin Degludec) 100 Unit/1 Ml Vial 20 Unit SQ HS Ibuprofen 800 Mg Tablet 800 Mg PO PRN BID PRN Levothyroxine Sodium 25 Mcg Tablet 1 Tab PO DAILY Carafate (Sucralfate) 1 Gm Tablet 1 Tab PO QID Metformin Hcl Er (Metformin Hcl) 1,000 Mg Tab.er.24 1,000 Mg PO BIDBFRMEAL Victoza 3-Arnaldo (Liraglutide) 0.6 Mg/0.1 Ml Pen.injctr 1.2 Mg SQ DAILY Glipizide Er (Glipizide) 10 Mg Tab.er.24 1 Tab PO DAILY Atorvastatin Calcium 20 Mg Tablet 20 Mg PO HS Gabapentin (Gabapentin) 300 Mg Capsule 300 Mg PO HS Trazodone Hcl 100 Mg Tablet 100 Mg PO QHS Latuda (Lurasidone Hcl) 40 Mg Tablet 1 Tab PO QHS Diovan (Valsartan) 320 Mg Tablet 320 Mg PO DAILY Omeprazole 40 Mg Capsule. 1 Cap PO DAILY Vitals/I & O Vital Sign - Last 24 Hours 08/23/18 08/23/18 08/23/18 08/23/18 11:25 15:22 19:00 20:06 Temp 98.1 97.8 97.8 98.1 97.8 97.8 Pulse 75 72 59 Resp 18 18 B/P (MAP) 115/75 (88) 114/69 (84) 125/69 (87) Pulse Ox 94 98 92 O2 Delivery Room Air Room Air Room Air Room Air 08/23/18 08/24/18 08/24/18 08/24/18 22:00 03:00 07:00 08:00 Temp 97.2 97.5 97.7 97.2 97.5 97.7 Pulse 57 76 89 Resp 18 B/P (MAP) 125/76 (92) 131/61 (84) 136/86 (103) Pulse Ox 96 95 97 O2 Delivery Room Air Room Air Room Air Room Air Intake and Output 08/23/18 08/23/18 08/24/18 14:59 22:59 06:59 Intake Total 1140 ml Balance 1140 ml Nutrition Consultation Dietary Evaluation: Recommendations by RD: Increase Calorie Intake, Protein supplementation Comments: REC adv diet to ADA, Cardiac when able Expected Outcomes/Goals: to meet > 75% est nutr needs Interpretation of weight loss: >1-2% in 1 week Malnutrition Findings: Food and Nutrition Intake (Mod: <75% est energy req 7days Weight Status: Obese FANNY,SIVAKOTI R MD August 24, 2018 10:07
[2018-08-24 11:00] VITALS: BP 130/66
--- NOTE | 2018-08-24 11:32 | PDOC ---
Subjective: Subjective: Still hurts. "They still gotta take a couple pictures of my stomach." Feels okay about going home today. Objective: Objective: D/w Dr. Ziegler this morning - plans to DC after GES. Vital Signs: Vital Signs Date Time Temp Pulse Resp B/P (MAP) Pulse Ox O2 Delivery O2 Flow Rate FiO2 08/24/18 08:00 Room Air 08/24/18 07:00 97.7 89 18 136/86 (103) 97 97.7 Labs: Laboratory Tests Test 08/23/18 17:01 08/23/18 17:22 08/23/18 20:44 08/24/18 07:44 Glucose (Fingerstick) 55 mg/dL 82 mg/dL 77 mg/dL 90 mg/dL Test 08/24/18 11:26 Glucose (Fingerstick) 107 mg/dL PE: GEN: NAD LUNGS: CTAB HEART: RRR ABD: obese, non-tender NEURO/PSYCH: A & O 3 A/P: Recurrent abd pain GERD -- Await GES, DC per primary. Continue PPI. ROSIE FISHMAN August 24, 2018 11:32
--- NOTE | 2018-08-24 12:40 | NUR ---
Discharge instructions and belongings reviewed with patient, verbalized understanding. Patient was escorted out via ambulation by Ariela HILARIO.
--- NOTE | 2018-08-24 13:36 | RAD ---
Radionuclide gastric emptying study, 08/24/2018: HISTORY: Nausea, abdominal pain The study was performed utilizing a solid test meal radiolabeled with 2 mCi of technetium 99m sulfur colloid. The following gastric retention values were obtained: 1 hour-49 percent 2 hours-33 percent 3 hours-27 percent 4 hours-0 percent These values are in the normal range. A normal T1/2 of 61 minutes was also calculated. IMPRESSION: Normal gastric emptying time Electronically signed by: Jose Rosa MD (08/24/2018 1:33 PM) [facility]
--- NOTE | 2018-08-29 14:52 | PDOC ---
Provider Note Provider Note Discharge summary dictated. #[id number]. MARY CHU MD Aug 29, 2018 14:52
--- NOTE | 2018-08-29 23:14 | DS ---
DATE OF DISCHARGE: 08/24/2018 REASON FOR ADMISSION TO THE HOSPITAL: Abdominal pain, back pain. CONSULTATIONS: Dr. Mcdaniel. Dr. Freeman. PROCEDURES DONE: 1. Abdominal sonogram. 2. CT scan of abdomen and pelvis. 3. PIPIDA scan. 4. Gastric emptying test and x-ray of the spine. HOSPITAL COURSE: The patient is a 38-year-old male with history of diabetes, hypertension, hypothyroidism and bipolar. He was having abdominal pain, was in the Emergency Room 3 days ago without much improvement. He came to the office, was tender in the mid abdomen, was admitted to the hospital. His laboratory data was unremarkable. Amylase and lipase was normal. Urine were normal. Abdominal pelvic CT scan was benign. Ultrasound of the gallbladder was negative for gallstones. Had x-rays of the hip and the back, was negative. Had a HIDA scan that shows no evidence of gallbladder disease, had a gastric emptying study which was normal. The patient had EGD less than a year ago which showed some gastritis. No EGD was done this time. The patient was seen by GI as well as rehab. Condition improved and the patient was discharged. FINAL DIAGNOSES: 1. Abdominal pain, nonspecific, possible diabetic gastroparesis. 2. Diabetes. 3. Hypertension. 4. Hypothyroidism. 5. Bipolar. DISPOSITION: Home. DISCHARGE MEDICATIONS: See MRAD for discharge medications. His A1c was good control around 6.0. Thyroid was normal. MARY CHU MD DR: MICK/ace JOB#: [id number] / [id number]
== END 2018-08-24 12:41 | disposition home or self-care (01) | DRG 74 ==
LOC: 4 NORTH 12:06
PROVIDERS: ADMIT Internal Medicine; ATTEND Internal Medicine
DX: E11.43 Type 2 diabetes mellitus with diabetic autonomic (poly)neuropathy (principal); E11.42 Type 2 diabetes mellitus with diabetic polyneuropathy; E03.9 Hypothyroidism, unspecified; E66.01 Morbid (severe) obesity due to excess calories; Z68.39 Body mass index [BMI] 39.0-39.9, adult; E78.5 Hyperlipidemia, unspecified; F31.9 Bipolar disorder, unspecified; F90.9 Attention-deficit hyperactivity disorder, unspecified type; K21.9 Gastro-esophageal reflux disease without esophagitis; M51.36 Other intervertebral disc degeneration, lumbar region; I10 Essential (primary) hypertension; K76.0 Fatty (change of) liver, not elsewhere classified; Z79.4 Long term (current) use of insulin; Z82.49 Family history of ischemic heart disease and other diseases of the circulatory system; Z83.3 Family history of diabetes mellitus; Z79.899 Other long term (current) drug therapy; K31.84 Gastroparesis
CPT/HCPCS: 36415; 72072; 72110; 73502; 74177; 76705; 78226; 78264; 80053; 80061; 81001; 82150; 82962; 83036; 83690; 84443; 85025; 96374; A9537; A9541; J1815; J7030; Q9966; Q9967

== ENCOUNTER 2018-12-15 12:56 | Emergency (ER) | payer OTHER, MEDICAID ==
[~2018-12-15] VITALS: Ht 188 cm; Wt 158.8 kg
[~2018-12-15 12:56] MED LIST changes: +IBUP-1060 PO; +INSU100V37 SQ; +INSU200I SQ
--- NOTE | 2018-12-15 13:10 | PHYS DOC ---
Past Medical History Past Medical History: Bipolar, Diabetes-Type II, High Cholesterol, Hypert ension, Hypothyroid, Other Additional Past Medical Histor: ADHD Past Surgical History: Other Additional Past Surgical Histo: Tubes in ears as a child Alcohol Use: None Drug Use: None Adult General Chief Complaint Chief Complaint: FOREIGNBODY EAR HPI HPI Patient is a 38 year old male patient who presents to the ED today complaining of an insect in the right ear that he felt this morning when he woke up. Review of Systems Review of Systems Constitutional: Denies fever or chills [] HENT: Reports insect to the right ear Denies nasal congestion or sore throat [] Musculoskeletal: Denies back pain or joint pain [] Integument: Denies rash or skin lesions [] Neurologic: Denies headache, focal weakness or sensory changes [] All other systems were reviewed and found to be within normal limits, except as documented in this note. Allergies Allergies Allergies Coded Allergies Type Severity Reaction Last Updated Verified No Known Drug Allergies 10/06/17 No Physical Exam Physical Exam Constitutional: Well developed, well nourished, no acute distress, non-toxic appearance. [] HENT: Normocephalic, atraumatic, bilateral external ears normal, oropharynx moist, no oral exudates, nose normal. [] Right ear canal with a foreign object suspicious of an insect Abdomen: Bowel sounds normal, soft, no tenderness, no masses, no pulsatile masses. [] Skin: Warm, dry, no erythema, no rash. [] Back: No tenderness, no CVA tenderness. [] Extremities: No tenderness, no cyanosis, no clubbing, ROM intact, no edema. [] Neurologic: Alert and oriented X 3, normal motor function, normal sensory function, no focal deficits noted. [] Psychologic: Affect normal, judgement normal, mood normal. [] EKG EKG [] Radiology/Procedures Radiology/Procedures [] Course & Med Decision Making Course & Med Decision Making Pertinent Labs and Imaging studies reviewed. (See chart for details) This is a 38-year-old male patient who presents to the ED today complaining of an insect in the right ear canal, cockroach was removed from patient's right ear canal by RN. Right ear canal was evaluated, no foreign objects noted. Patient encouraged to get an stove installer to clean his house as well as maintain good hygiene. Follow-up with PCP as needed. Dragon Disclaimer Dragon Disclaimer This electronic medical record was generated, in whole or in part, using a voice recognition dictation system. Departure Departure Impression: Primary Impression: Foreign body of ear, right Disposition: HOME, SELF-CARE (this morning he just woke up and) Condition: STABLE Referrals: MARY CHU MD (PCP) follow up in one week Patient Instructions: Ear Foreign Body Additional Instructions: We removed a cockroach from the right ear Please get an stove installer and remove insects from the house Ensure your house is very clean Problem Qualifiers Primary Impression: Foreign body of ear, right Encounter type: initial encounter Qualified Codes: T16.1XXA - Foreign body in right ear, initial encounter KAHLIL MANTILLA APRN Dec 15, 2018 13:10
[2018-12-15 13:30] VITALS: BP 139/101
== END 2018-12-15 13:24 | disposition home or self-care (01) ==
LOC: ER 12:56
DX: T16.1XXA Foreign body in right ear, initial encounter (principal); F31.9 Bipolar disorder, unspecified; E78.00 Pure hypercholesterolemia, unspecified; E11.9 Type 2 diabetes mellitus without complications; I10 Essential (primary) hypertension; E03.9 Hypothyroidism, unspecified; X58.XXXA Exposure to other specified factors, initial encounter; Y93.89 Activity, other specified; Y92.89 Other specified places as the place of occurrence of the external cause; Y99.8 Other external cause status
CPT/HCPCS: 99284-25

== ENCOUNTER 2019-01-07 19:17 | Emergency (ER) | payer OTHER, MEDICAID ==
[~2019-01-07] VITALS: Ht 188 cm; Wt 158.8 kg
[~2019-01-07 19:17] MED LIST changes: +OMEP40CA45 PO; -OMEP40CA5 PO
--- NOTE | 2019-01-07 19:49 | PHYS DOC ---
Past Medical History Past Medical History: No Pertinent History Additional Past Medical Histor: ADHD Past Surgical History: No Surgical History Additional Past Surgical Histo: Tubes in ears as a child Alcohol Use: None Drug Use: None Adult General Chief Complaint Chief Complaint: VISION PROBLEM [facility] Patient is a 38-year-old male who presents with complaint of left eye vision disturbance that started 2 days ago. Patient states that it started with flickering lights, stating that it's worse when he is in the dark. He states that since that time he has developed black areas in his vision that he describes as spots that he is just not able to see. He does indicate that he started with a headache a couple of days ago but has no headache currently. He denies any lateralizing weakness. He does admit to some dizziness that has been intermittent.[] Review of Systems Review of Systems Constitutional: Denies fever or chills [] Eyes: Complains of change in visual acuity left eye, flickering lights without eye pain [] Respiratory: Denies cough or shortness of breath [] Cardiovascular: No additional information not addressed in HPI [] GI: Denies abdominal pain, nausea, vomiting or diarrhea [] Neurologic: Complains of headache and dizziness without focal weakness or sen chris changes [] All other systems were reviewed and found to be within normal limits, except as documented in this note. Allergies Allergies Allergies Coded Allergies Type Severity Reaction Last Updated Verified No Known Drug Allergies 10/06/17 No Physical Exam Physical Exam Constitutional: Well developed, well nourished, no acute distress, non-toxic appearance. [] HENT: Normocephalic, atraumatic, bilateral external ears normal, oropharynx moist, no oral exudates, nose normal. [] Eyes: PERRLA, EOMI, conjunctiva normal, no discharge. Ophthalmoscopic exam demonstrates no acute abnormalities; normal cup to disc ratio. [] Cardiovascular:Heart rate regular rhythm, no murmur [] Lungs & Thorax: Bilateral breath sounds clear to auscultation [] Neurologic: Alert and oriented X 3, no focal deficits noted. [] Current Patient Data Vital Signs Vital Signs Date Time Temp Pulse Resp B/P (MAP) Pulse Ox O2 Delivery O2 Flow Rate FiO2 01/07/19 19:17 98.5 104 18 121/66 (84) 93 Room Air 98.5 EKG EKG [] Radiology/Procedures Radiology/Procedures [] Impressions: PROCEDURE: CT HEAD WO CONTRAST CT Head W/O Contrast: History: Visual disturbance and dizziness Comparison: none Axial images were obtained without contrast. The martinez and white matter appears normal and symmetrical for the patients age. There is no mass effect, extraaxial fluid collections or hydrocephalus. There is no gross bleed. There is no focal loss of martinez-white matter distinction to suggest acute ischemia, i.e. stroke. Impression: No acute findings. PQRS Compliance Statement: One or more of the following individualized dose reduction techniques were utilized for this examination: 1. Automated exposure control 2. Adjustment of the mA and/or kV according to patient size 3. Use of iterative reconstruction technique Electronically signed by: Phillip Concepcion III, MD (01/07/2019 8:00 PM) [facility] Course & Med Decision Making Course & Med Decision Making Pertinent Labs and Imaging studies reviewed. (See chart for details) Patient's case was discussed with Dr. Church at 7:30 PM. He indicates that they will work patient into the schedule tomorrow morning if patient is able to show a 29 and 9:30 AM in her office. He has no further recommendations for this evening. Dragon Disclaimer Dragon Disclaimer This electronic medical record was generated, in whole or in part, using a voice recognition dictation system. Departure Departure Impression: Primary Impression: Visual disturbance Disposition: 01 HOME, SELF-CARE Condition: STABLE Referrals: MARY CHU MD (PCP) FREDDIE JORGE MD Patient Instructions: Eye - Blurred Vision, Eye - Floaters, Eye - Vitreous Detachment Additional Instructions: Follow-up with Dr. Jorge tomorrow morning between 9 and 9:30 AM in their office to be seen for further evaluation. GUANACO VAN Jr. DO Jan 07, 2019 19:49
--- NOTE | 2019-01-07 20:03 | RAD ---
CT Head W/O Contrast: History: Visual disturbance and dizziness Comparison: none Axial images were obtained without contrast. The martinez and white matter appears normal and symmetrical for the patients age. There is no mass effect, extraaxial fluid collections or hydrocephalus. There is no gross bleed. There is no focal loss of martinez-white matter distinction to suggest acute ischemia, i.e. stroke. Impression: No acute findings. RS Compliance Statement: One or more of the following individualized dose reduction techniques were utilized for this examination: 1. Automated exposure control 2. Adjustment of the mA and/or kV according to patient size 3. Use of iterative reconstruction technique Electronically signed by: Phillip Concepcion III, MD (01/07/2019 8:00 PM) [facility]
[2019-01-07 20:15] VITALS: BP 126/60
== END 2019-01-07 20:30 | disposition home or self-care (01) ==
LOC: ER 19:17
DX: H53.8 Other visual disturbances (principal); R51 Headache; R42 Dizziness and giddiness
CPT/HCPCS: 70450; 99284

== ENCOUNTER 2019-09-11 17:40 | Emergency (ER) | payer OTHER, MEDICAID ==
[~2019-09-11] VITALS: Ht 190.5 cm; Wt 159.0 kg
[~2019-09-11 17:40] MED LIST changes: +TRAZ-123 PO; -TRAZ-86 PO
[2019-09-11] MEDS ORDERED: IV NORMAL SALINE 1000ML BAG 1,000 ML IV ONE ×2 (18:00→19:00)
[2019-09-11] MEDS ORDERED: ONDANSETRON PF 4 MG/2 ML VIAL. IVP ONE (18:00)
[2019-09-11 18:21] LABS: BASO # 0.1 x10^3/uL (0.0-0.2); BASO % 1 % (0-3); EOS # 0.1 x10^3/uL (0.0-0.7); EOS % 1 % (0-3); HEMOGLOBIN 16.4 g/dL (13.0-17.5); LYMPH # 1.7 x10^3/uL (1.0-4.8); LYMPH % 11 % (24-48); MEAN CORPUSCULAR HEMOGLOBIN 34 pg (25-35); MEAN CORPUSCULAR HGB CONC 35 g/dL (31-37); MEAN CORPUSCULAR VOLUME 97 fL (79-100); MONO # 0.9 x10^3/uL (0.0-1.1); MONO % 6 % (0-9); NEUT # 12.4 x10^3/uL (1.8-7.7); NEUT % 82 % (31-73); PLATELET COUNT 194 x10^3/uL (140-400); RED BLOOD COUNT 4.85 x10^6/uL (4.30-5.70); RED CELL DISTRIBUTION WIDTH 13.2 % (11.5-14.5); WHITE BLOOD COUNT 15.1 x10^3/uL (4.0-11.0)
--- NOTE | 2019-09-11 18:26 | RAD ---
CHEST AP ONLY History: Reason: short of air, near syncope / Spl. Instructions: / History: Comparison: November 05, 2018 Findings: No consolidation or pleural effusion. Normal heart size. No pneumothorax. Impression: 1. No acute cardiopulmonary process. Electronically signed by: Devonte Hernandez DO (09/11/2019 6:23 PM) [facility]
--- NOTE | 2019-09-11 18:32 | PHYS DOC ---
Past Medical History Past Medical History: Bipolar, Diabetes-Type II, High Cholesterol Additional Past Medical Histor: ADHD, thyroid disease Past Surgical History: Other Additional Past Surgical Histo: tubes in ears Smoking Status: Never Smoker Alcohol Use: Rarely Drug Use: None General Adult EDM: Chief Complaint: HEAT EXPOSURE HPI: HPI: Patient is a 39 year old male who presents for evaluation via EMS after feeling like he might pass out. Patient states he was outside in the heat waiting on a bus for a prolonged period of time. He states he became very lightheaded had sweats and nausea. He states he nearly passed out. Patient was having some minimal epigastric discomfort. No complaints of chest pain. Blood pressure was 80 over palp on arrival. Patient was awake, alert and appropriate and able to give a good history. Prior to sitting on the bus patient had no symptoms. Patient is multiple risk factors including diabetes, hyperlipidemia as well as hypertension Review of Systems: Review of Systems: Constitutional: Denies fever or chills. [] Eyes: Denies change in visual acuity. [] HENT: Denies nasal congestion or sore throat. [] Respiratory: Denies cough has mild shortness of breath. [] Cardiovascular: Denies chest pain or edema. [] GI: mild upper abdominal pain with nausea no vomiting, no bloody stools or diarrhea. [] : Denies dysuria. [] Musculoskeletal: Denies back pain or joint pain. [] Integument: Denies rash. [] Neurologic: Denies headache, no focal weakness or sensory changes. [] Endocrine: Denies polyuria or polydipsia. [] Lymphatic: Denies swollen glands. [] Psychiatric: Denies depression or anxiety. [] Heart Score: Risk Factors: Risk Factors: DM, Current or recent (<one month) smoker, HTN, HLP, family history of CAD, obesity. Risk Scores: Score 0 - 3: 2.5% MACE over next 6 weeks - Discharge Home Score 4 - 6: 20.3% MACE over next 6 weeks - Admit for Clinical Observation Score 7 - 10: 72.7% MACE over next 6 weeks - Early Invasive Strategies Current Medications: Current Medications Medications (Trade) Dose Ordered Sig/Rafael Start Time Stop Time Status Last Admin Dose Admin Ondansetron HCl (Zofran) 4 mg 1X ONCE 09/11/19 18:00 6/17/20 18:02 DC 09/11/19 18:25 4 MG Sodium Chloride 1,000 ml @ 999 mls/hr 1X ONCE 09/11/19 18:00 09/11/19 19:00 09/11/19 18:23 999 MLS/HR Allergies: Allergies: Allergies Coded Allergies Type Severity Reaction Last Updated Verified No Known Drug Allergies 10/06/17 No Physical Exam: PE: Constitutional: Well developed, well nourished, mild distress, non-toxic appearance. [] HENT: Normocephalic, atraumatic, bilateral external ears normal, oropharynx moist, no oral exudates, nose normal. [] Eyes: PERRL, EOMI, conjunctiva normal, no discharge. [] Neck: Normal range of motion, no tenderness, supple, no stridor. [] Cardiovascular:Heart rate regular rhythm, no murmur [] Lungs & Thorax: Bilateral breath sounds clear to auscultation [] Abdomen: Bowel sounds normal, soft, no tenderness, no masses, no pulsatile masses. [] Skin: Warm, dry, no erythema, no rash. [] Back: No tenderness. [] Extremities: No tenderness, no cyanosis, no clubbing, ROM intact, no edema. [] Neurologic: Alert and oriented X 3, normal motor function, normal sensory function, no focal deficits noted. [] Psychologic: Affect normal, judgement normal, mood normal. [] Current Patient Data: Labs: Laboratory Tests Test 09/11/19 18:10 White Blood Count 15.1 x10^3/uL (4.0-11.0) H Red Blood Count 4.85 x10^6/uL (4.30-5.70) Hemoglobin 16.4 g/dL (13.0-17.5) Hematocrit 47.0 % (39.0-53.0) Mean Corpuscular Volume 97 fL (79-100) Mean Corpuscular Hemoglobin 34 pg (25-35) Mean Corpuscular Hemoglobin Concent 35 g/dL (31-37) Red Cell Distribution Width 13.2 % (11.5-14.5) Platelet Count 194 x10^3/uL (140-400) Neutrophils (%) (Auto) 82 % (31-73) H Lymphocytes (%) (Auto) 11 % (24-48) L Monocytes (%) (Auto) 6 % (0-9) Eosinophils (%) (Auto) 1 % (0-3) Basophils (%) (Auto) 1 % (0-3) Neutrophils # (Auto) 12.4 x10^3/uL (1.8-7.7) H Lymphocytes # (Auto) 1.7 x10^3/uL (1.0-4.8) Monocytes # (Auto) 0.9 x10^3/uL (0.0-1.1) Eosinophils # (Auto) 0.1 x10^3/uL (0.0-0.7) Basophils # (Auto) 0.1 x10^3/uL (0.0-0.2) Laboratory Tests 09/11/19 18:10 Vital Signs: Laboratory Tests Test 09/11/19 18:10 White Blood Count 15.1 x10^3/uL Red Blood Count 4.85 x10^6/uL Hemoglobin 16.4 g/dL Hematocrit 47.0 % Mean Corpuscular Volume 97 fL Mean Corpuscular Hemoglobin 34 pg Mean Corpuscular Hemoglobin Concent 35 g/dL Red Cell Distribution Width 13.2 % Platelet Count 194 x10^3/uL Neutrophils (%) (Auto) 82 % Lymphocytes (%) (Auto) 11 % Monocytes (%) (Auto) 6 % Eosinophils (%) (Auto) 1 % Basophils (%) (Auto) 1 % Neutrophils # (Auto) 12.4 x10^3/uL Lymphocytes # (Auto) 1.7 x10^3/uL Monocytes # (Auto) 0.9 x10^3/uL Eosinophils # (Auto) 0.1 x10^3/uL Basophils # (Auto) 0.1 x10^3/uL Current Medications Medications (Trade) Dose Ordered Sig/Rafael Route PRN Reason Start Time Stop Time Status Last Admin Dose Admin Ondansetron HCl (Zofran) 4 mg 1X ONCE IVP 09/11/19 18:00 09/11/19 18:02 DC 09/11/19 18:25 4 MG Sodium Chloride 1,000 ml @ 999 mls/hr 1X ONCE IV 09/11/19 18:00 09/11/19 19:00 09/11/19 18:23 999 MLS/HR Vital Signs Date Time Temp Pulse Resp B/P (MAP) Pulse Ox O2 Delivery O2 Flow Rate FiO2 09/11/19 17:56 99.1 105 18 76/54 (61) 95 Room Air 99.1 EKG: EKG: EKG read at 1834 showed normal sinus rhythm rate 95, nonspecific ST segment changes, not STEMI [] Radiology/Procedures: Radiology/Procedures: [] Course & Med Decision Making: Course & Med Decision Making Pertinent Labs and Imaging studies reviewed. (See chart for details) [1900 stable, feeling better at this time. Blood pressure now 90s over palp. Second liter of IV fluids ordered. CK added as well. There is some renal insufficiency noted with a creatinine of 2. 1943 systolic blood pressure now 110 systolic. Patient is feeling much better at this time. He is not ready to give us a urine sample after the second liter of fluid infused Dragon Disclaimer: Dragon Disclaimer: This electronic medical record was generated, in whole or in part, using a voice recognition dictation system. 2028 stable, feeling better, urinalysis does not show significant dehydration. Will check orthostatics before final disposition decision 2144 stable, feeling much better at this time again. Patient ambulatory without difficulty. Orthostatics unremarkable. Blood pressure now 130/80s systolic. Patient ready for discharge. He was encouraged to need a lot of fluids as he did have some mild kidney impairment Departure Departure Impression: Primary Impression: Heat exhaustion Qualified Codes: T67.5XXA - Heat exhaustion, unspecified, initial encounter Additional Impression: Renal insufficiency Disposition: HOME, SELF-CARE Condition: STABLE Referrals: MARY CHU MD (PCP) Patient Instructions: Heat Disorders, Kidney Function Tests Additional Instructions: Drink plenty fluids and rest. Your kidney function was slightly impaired today. Make sure to get that rechecked with your doctor. It may be related to your heat exhaustion today but cannot exclude underlying kidney problem Justicifation of Admission Dx: Justifications for Admission: Justification of Admission Dx: N/A SARI VERGARA DO Sep 11, 2019 18:32
[2019-09-11 18:38] LABS: CALCIUM 9.9 mg/dL (8.5-10.1); GFR 37.6; POTASSIUM 5.6 mmol/L (3.5-5.1)
[2019-09-11 18:43] LABS: ALBUMIN 3.7 g/dL (3.4-5.0); ALBUMIN/GLOBULIN RATIO 0.8 (1.0-1.7); TOTAL BILIRUBIN 0.6 mg/dL (0.2-1.0); TOTAL PROTEIN 8.1 g/dL (6.4-8.2)
[2019-09-11 20:01] LABS: BILIRUBIN,URINE SMALL (NEG); CLARITY,URINE CLEAR; COLOR,URINE AMBER; NITRITE,URINE NEGATIVE (NEG); PH,URINE 5.5 (<5.0-8.0); PROTEIN,URINE 100 mg/dL (NEG-TRACE)
[2019-09-11 20:04] LABS: HYALINE CASTS, URINE MANY /HPF; SQUAMOUS EPITHELIAL CELL,UR FEW /LPF
[2019-09-11 20:05] LABS: BACTERIA,URINE 0 /HPF (0-FEW)
[2019-09-11 21:53] VITALS: BP 116/70
--- NOTE | 2019-09-12 05:53 | EKG ---
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
== END 2019-09-11 22:02 | disposition home or self-care (01) ==
LOC: ER 17:40
DX: T67.5XXA Heat exhaustion, unspecified, initial encounter (principal); N28.9 Disorder of kidney and ureter, unspecified; R42 Dizziness and giddiness; R61 Generalized hyperhidrosis; R11.0 Nausea; F31.9 Bipolar disorder, unspecified; E11.9 Type 2 diabetes mellitus without complications; E78.00 Pure hypercholesterolemia, unspecified; X30.XXXA Exposure to excessive natural heat, initial encounter; Y93.89 Activity, other specified; Y92.89 Other specified places as the place of occurrence of the external cause; Y99.8 Other external cause status
CPT/HCPCS: 36415; 71045; 80053; 81001; 82550; 83690; 84484; 85025; 93005; 96361; 96374; 99285; J2405; J7030

== ENCOUNTER 2020-10-28 16:32 | Emergency (ER) | payer OTHER, MEDICAID ==
[~2020-10-28] VITALS: Ht 190.5 cm; Wt 172.0 kg
[~2020-10-28 16:32] MED LIST changes: -OMEP40CA45 PO; +OMEP40CA7 PO
[2020-10-28] MEDS ORDERED: PSEU120T58 PO (20:15)
--- NOTE | 2020-10-28 20:17 | PHYS DOC ---
Past Medical History Past Medical History: Bipolar, Diabetes-Type II, High Cholesterol Additional Past Medical Histor: ADHD, thyroid disease, BIPOLAR Past Surgical History: Other Additional Past Surgical Histo: tubes in ears Smoking Status: Never Smoker Alcohol Use: Rarely Drug Use: None General Adult EDM: Chief Complaint: OTHER COMPLAINTS HPI: HPI: Patient is a 40 year old male with history of bipolar, diabetes type 2, high cholesterol, who presents to the ED today stating he feels like he has something stuck in his throat. Patient denies ingesting or swallowing anything unusual. He states he woke up from a nap and had this sensation. He states he is able to swallow and tolerate his secretions with no difficulties. He states he tends to worry about every small pain and this could be one of those events Review of Systems: Review of Systems: Constitutional: Denies fever or chills. [] Eyes: Denies change in visual acuity. [] HENT: Denies nasal congestion or sore throat. [] Respiratory: Reports something in his throat. Denies cough or shortness of breath. [] Cardiovascular: Denies chest pain or edema. [] GI: Denies abdominal pain, nausea, vomiting, bloody stools or diarrhea. [] : Denies dysuria. [] Musculoskeletal: Denies back pain or joint pain. [] Integument: Denies rash. [] Neurologic: Denies headache, focal weakness or sensory changes. [] Endocrine: Denies polyuria or polydipsia. [] Lymphatic: Denies swollen glands. [] Psychiatric: Denies depression or anxiety. [] Heart Score: C/O Chest Pain: N/A Risk Factors: Risk Factors: DM, Current or recent (<one month) smoker, HTN, HLP, family history of CAD, obesity. Risk Scores: Score 0 - 3: 2.5% MACE over next 6 weeks - Discharge Home Score 4 - 6: 20.3% MACE over next 6 weeks - Admit for Clinical Observation Score 7 - 10: 72.7% MACE over next 6 weeks - Early Invasive Strategies Allergies: Allergies: Allergies Coded Allergies Type Severity Reaction Last Updated Verified No Known Drug Allergies 10/06/17 No Physical Exam: PE: Constitutional: Obese patient, no acute distress, non-toxic appearance. [] HENT: Normocephalic, atraumatic, bilateral external ears normal, oropharynx moist, no oral exudates, nose normal. [] Airway is open, patient sounds like he has mucus in his throat. He is tolerating his secretions without difficulty Eyes: PERRLA, EOMI, conjunctiva normal, no discharge. [] Neck: Normal range of motion, no tenderness, supple, no stridor. [] Cardiovascular:Heart rate regular rhythm, no murmur [] Lungs & Thorax: Bilateral breath sounds clear to auscultation [] Abdomen: Bowel sounds normal, soft, no tenderness, no masses, no pulsatile masses. [] Skin: Warm, dry, no erythema, no rash. [] Back: No tenderness, no CVA tenderness. [] Extremities: No tenderness, no cyanosis, no clubbing, ROM intact, no edema. [] Neurologic: Alert and oriented X 3, normal motor function, normal sensory function, no focal deficits noted. [] Psychologic: Affect normal, judgement normal, mood normal. [] Current Patient Data: Vital Signs: Vital Signs Date Time Temp Pulse Resp B/P (MAP) Pulse Ox O2 Delivery O2 Flow Rate FiO2 10/28/20 19:50 77 150/105 (85) 97 Room Air EKG: EKG: [] Radiology/Procedures: Radiology/Procedures: [] Course & Med Decision Making: Course & Med Decision Making Pertinent Labs and Imaging studies reviewed. (See chart for details) This is 40-year-old male patient presenting to the ED today stating he has something hanging in his throat. His airway is open, he is tolerating his secretions. He sounds like he has mucus in his throat. Discharge to home. Cesia Disclaimer: Cesia Disclaimer: This electronic medical record was generated, in whole or in part, using a voice recognition dictation system. Departure Departure Impression: Primary Impression: Throat congestion Disposition: HOME / SELF CARE / HOMELESS Condition: STABLE Referrals: MARY CHU MD (PCP) follow up in one week Patient Instructions: Upper Respiratory Infection, Adult, [id number] Additional Instructions: Your symptoms sound like you have mucus in your throat. This is not unusual feeling. You are currently able to tolerate your secretions. You can take a decongestant to dry some of this mucus out. Please follow-up with your primary care doctor in 1 week. We also encourage you to try and push fluids. Scripts Pseudoephedrine Hcl (PSEUDOEPHEDRINE) 120 Mg Tablet.er 1 TAB PO BID for 3 Days, #6 TAB 0 Refills Prov: KAHLIL MANTILLA APRN 10/28/20 KAHLIL MANTILLA APRN Oct 28, 2020 20:17
[2020-10-28 20:29] VITALS: BP 156/107
== END 2020-10-28 21:40 | disposition home or self-care (01) ==
LOC: ER 16:32
DX: R09.89 Other specified symptoms and signs involving the circulatory and respiratory systems (principal); F31.9 Bipolar disorder, unspecified; E78.00 Pure hypercholesterolemia, unspecified; E11.9 Type 2 diabetes mellitus without complications; F90.9 Attention-deficit hyperactivity disorder, unspecified type
CPT/HCPCS: 99283

== ENCOUNTER 2021-04-25 22:59 | Emergency (ER) | payer OTHER, MEDICAID ==
[~2021-04-25] VITALS: Ht 190.5 cm; Wt 167.0 kg
[~2021-04-25 22:59] MED LIST changes: -LURA40TA PO; +LURA40TA2 PO; +PSEU120T58 PO
[2021-04-25 23:00] VITALS: BP 128/78
--- NOTE | 2021-04-25 23:14 | PHYS DOC ---
Past Medical History Past Medical History: Bipolar, Diabetes-Type II, High Cholesterol Additional Past Medical Histor: ADHD, thyroid disease, BIPOLAR (EDWIN JACQUES APRN) Past Surgical History: Other Additional Past Surgical Histo: tubes in ears (EDWIN JACQUES APRN) Smoking Status: Never Smoker Alcohol Use: None Drug Use: None (EDWIN JACQUES APRN) General Adult EDM: Chief Complaint: Hand Pain HPI: HPI: Patient is a 41-year-old male that presents today via [facility] with complaint of right hand pain. Patient states around 430 or 5:00 today he opened up on a wall and he says since that time he has had increased pain in his third and fourth fingers, he states he is unable to straighten them out completely and he would like them checked out. Patient states he is right-hand dominant. Patient does have a past medical history of having a injury to the fourth finger that does not allow him to straighten out the distal portion of the finger he said that has been like that since he was a child. (EDWIN JACQUES APRN) Review of Systems: Review of Systems: Constitutional: Denies fever or chills. [] Eyes: Denies change in visual acuity. [] HENT: Denies nasal congestion or sore throat. [] Respiratory: Denies cough or shortness of breath. [] Cardiovascular: Denies chest pain or edema. [] GI: Denies abdominal pain, nausea, vomiting, bloody stools or diarrhea. [] : Denies dysuria. [] Musculoskeletal: Right hand pain Integument: Denies rash. [] Neurologic: Denies headache, focal weakness or sensory changes. [] Endocrine: Denies polyuria or polydipsia. [] Lymphatic: Denies swollen glands. [] Psychiatric: Denies depression or anxiety. [] (EDWIN JACQUES APRN) Heart Score: C/O Chest Pain: N/A Risk Factors: Risk Factors: DM, Current or recent (<one month) smoker, HTN, HLP, family history of CAD, obesity. Risk Scores: Score 0 - 3: 2.5% MACE over next 6 weeks - Discharge Home Score 4 - 6: 20.3% MACE over next 6 weeks - Admit for Clinical Observation Score 7 - 10: 72.7% MACE over next 6 weeks - Early Invasive Strategies (EDWIN JACQUES APRN) Allergies: Allergies: Allergies Coded Allergies Type Severity Reaction Last Updated Verified No Known Drug Allergies 10/06/17 No (EDWIN JACQUES APRN) Physical Exam: PE: Constitutional: Well developed, well nourished, no acute distress, non-toxic appearance. [] HENT: Normocephalic, atraumatic, bilateral external ears normal, oropharynx moist, no oral exudates, nose normal. [] Eyes: PERRLA, EOMI, conjunctiva normal, no discharge. [] Neck: Normal range of motion, no tenderness, supple, no stridor. [] Cardiovascular:Heart rate regular rhythm, no murmur [] Lungs & Thorax: Bilateral breath sounds clear to auscultation [] Abdomen: Bowel sounds normal, soft, no tenderness, no masses, no pulsatile masses. [] Skin: Warm, dry, no erythema, no rash. [] Back: No tenderness, no CVA tenderness. [] Extremities: Right hand painful to touch over the third and fourth finger on the proximal and, there is some ecchymosis noted on the proximal end of the finger, patient is able to make a fist but is unable to straighten out the third and fourth fingers completely, capillary refill on the third and fourth finger is less than 2 seconds, sensory is intact on the third and fourth finger, radial pulses 2+ in the right wrist. Neurologic: Alert and oriented X 3, normal motor function, normal sensory function, no focal deficits noted. [] Psychologic: Affect normal, judgement normal, mood normal. [] (EDWIN JACQUES APRN) Current Patient Data: Vital Signs: reviewed vital signs with RN (EDWIN JACQUES APRN) EKG: EKG: [] (EDWIN JACQUES APRN) Radiology/Procedures: Radiology/Procedures: [REASON: hit a wall and having pain in the 3 & 4 finger PROCEDURE: HAND RIGHT 3V EXAM: RIGHT HAND 3 VIEWS. HISTORY: Pain after injury. COMPARISON: None. FINDINGS: There is a fracture of the volar base of the third middle phalanx. An old healed fracture deformity of the fourth distal phalanx is suspected. There is soft tissue swelling along the second through fourth digits. Other joint spaces and alignment appear maintained. 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 IMPRESSION: 1. Nondisplaced fracture of the volar base of the third middle phalanx. Electronically signed by: Tracy Younger MD (04/25/2021 11:39 PM) [facility]] (EDWIN JACQUES APRN) Course & Med Decision Making: Course & Med Decision Making Pertinent Labs and Imaging studies reviewed. (See chart for details) Discussed radiological findings with patient did inform him that he does have a fracture we will place him in a splint he will need to follow-up with orthopedic doctor in 5 to 7 days for further management of this. Patient is instructed to ice 20 minutes on 4-5 times daily [id number] Tylenol or ibuprofen as needed for pain. Patient states he does not need a work excuse because he is disabled. Patient verbalizes understanding of the discharge instruction and agrees with the plan of care. 0009 volar splint placed by nursing staff to the right hand, reassessment of the hand after the splint was placed neurovascular intact. (EDWIN JACQUES APRN) Dragon Disclaimer: Dragon Disclaimer: This electronic medical record was generated, in whole or in part, using a voice recognition dictation system. (EDWIN JACQUES APRN) Departure Departure Impression: Primary Impression: Fracture of finger Qualified Codes: S62.653A - Nondisplaced fracture of middle phalanx of left middle finger, initial encounter for closed fracture Disposition: HOME / SELF CARE / HOMELESS Condition: STABLE Referrals: MARY CHU MD (PCP) ADRIANNA GREEN MD Patient Instructions: Cast or Splint Care, Finger Fracture Additional Instructions: Ice 20 minutes on 3-4 times daily to help with swelling and pain Keep splint clean and dry Tylenol and/or ibuprofen as needed for pain Follow-up with Dr. Fernandes the orthopedic physician that is in the referral section for further management of your fracture. EDWIN JACQUES APRN Apr 25, 2021 23:14 TOMMY BONNER MD Apr 28, 2021 03:06
--- NOTE | 2021-04-25 23:42 | RAD ---
EXAM: RIGHT HAND 3 VIEWS. HISTORY: Pain after injury. COMPARISON: None. FINDINGS: There is a fracture of the volar base of the third middle phalanx. An old healed fracture d eformity of the fourth distal phalanx is suspected. There is soft tissue swelling along the second th rough fourth digits. Other joint spaces and alignment appear maintained. 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 IMPRESSION: 1. Nondisplaced fracture of the volar base of the third middle phalanx. Electronically signed by: Tracy Younger MD (04/25/2021 11:39 PM) [facility]
== END 2021-04-26 00:51 | disposition home or self-care (01) ==
LOC: ER 22:59
DX: S62.653A Nondisplaced fracture of middle phalanx of left middle finger, initial encounter for closed fracture (principal); F31.9 Bipolar disorder, unspecified; E11.9 Type 2 diabetes mellitus without complications; E78.00 Pure hypercholesterolemia, unspecified; F90.9 Attention-deficit hyperactivity disorder, unspecified type; W22.8XXA Striking against or struck by other objects, initial encounter; Y93.89 Activity, other specified; Y92.89 Other specified places as the place of occurrence of the external cause; Y99.8 Other external cause status
CPT/HCPCS: 29125; 73130; 99283

== ENCOUNTER 2021-08-06 00:54 | Emergency (ER) | payer OTHER, MEDICAID ==
[~2021-08-06] VITALS: Ht 190.5 cm; Wt 166.4 kg
[2021-08-06] MEDS ORDERED: IV NORMAL SALINE 1000ML BAG 1,000 ML IV ONE (03:15)
--- NOTE | 2021-08-06 03:15 | ED.ADGEN ---
Past Medical History Past Medical History: Bipolar, Diabetes-Type II, High Cholesterol Additional Past Medical Histor: ADHD Past Surgical History: No Surgical History Additional Past Surgical Histo: tubes in ears Smoking Status: Former Smoker Alcohol Use: None Drug Use: None General Adult EDM: Chief Complaint: HEAT EXPOSURE HPI: HPI: Patient is a 41 year old male coming in via EMS for possible heat exhaustion. Patient states that he has been staying at home and does not have air conditioning. States that him and his brother went to walk to the store when they began to feel unwell. Patient has some nausea but no vomiting complains of epigastric abdominal pain. Review of Systems: Review of Systems: All other systems within normal limits except for as noted in the HPI Current Medications: Current Medications Medications (Trade) Dose Ordered Sig/Rafael Start Time Stop Time Status Last Admin Dose Admin Sodium Chloride 1,000 ml @ 1,000 mls/hr 1X ONCE 08/06/21 03:15 08/06/21 04:14 DC 08/06/21 03:30 1,000 MLS/HR Allergies: Allergies: Allergies Coded Allergies Type Severity Reaction Last Updated Verified No Known Drug Allergies 10/06/17 No Physical Exam: PE: Constitutional: Well developed, well nourished, no acute distress, non-toxic appearance. [] HENT: Normocephalic, atraumatic, bilateral external ears normal, nose normal. [] Eyes: PERRLA, conjunctiva normal, no discharge. [] Neck: No rigidity, supple, no stridor. [] Cardiovascular: Regular rate and rhythm, brisk cap refill [] Lungs & Thorax: Non labored symmetric respirations, no tachypnea or respiratory distress [] Abdomen: Soft, nondistended. Skin: Warm, dry, no erythema, no rash. [] Back: Unremarkable Extremities: No deformities, range of motion grossly intact, no lower extremity edema [] Neurologic: Alert and oriented X 3, no focal deficits noted. [] Psychologic: Affect normal, judgement normal, mood normal. [] Current Patient Data: Labs: Laboratory Tests Test 08/06/21 03:30 08/06/21 03:40 White Blood Count 12.7 x10^3/uL (4.0-11.0) H Red Blood Count 4.53 x10^6/uL (4.30-5.70) Hemoglobin 15.2 g/dL (13.0-17.5) Hematocrit 43.7 % (39.0-53.0) Mean Corpuscular Volume 96 fL (79-100) Mean Corpuscular Hemoglobin 34 pg (25-35) Mean Corpuscular Hemoglobin Concent 35 g/dL (31-37) Red Cell Distribution Width 13.3 % (11.5-14.5) Platelet Count 188 x10^3/uL (140-400) Neutrophils (%) (Auto) 71 % (31-73) Lymphocytes (%) (Auto) 19 % (24-48) L Monocytes (%) (Auto) 8 % (0-9) Eosinophils (%) (Auto) 1 % (0-3) Basophils (%) (Auto) 1 % (0-3) Neutrophils # (Auto) 9.0 x10^3/uL (1.8-7.7) H Lymphocytes # (Auto) 2.4 x10^3/uL (1.0-4.8) Monocytes # (Auto) 1.0 x10^3/uL (0.0-1.1) Eosinophils # (Auto) 0.2 x10^3/uL (0.0-0.7) Basophils # (Auto) 0.2 x10^3/uL (0.0-0.2) Sodium Level 133 mmol/L (136-145) L Potassium Level 4.2 mmol/L (3.5-5.1) Chloride Level 96 mmol/L (98-107) L Carbon Dioxide Level 25 mmol/L (21-32) Anion Gap 12 (6-14) Blood Urea Nitrogen 24 mg/dL (8-26) Creatinine 1.7 mg/dL (0.7-1.3) H Estimated GFR (Cockcroft-Gault) 44.9 BUN/Creatinine Ratio 14 (6-20) Glucose Level 230 mg/dL (70-99) H Lactic Acid Level 1.9 mmol/L (0.4-2.0) Calcium Level 9.5 mg/dL (8.5-10.1) Phosphorus Level 4.5 mg/dL (2.6-4.7) Magnesium Level 1.9 mg/dL (1.8-2.4) Total Bilirubin 0.7 mg/dL (0.2-1.0) Aspartate Amino Transferase (AST) 125 U/L (15-37) H Alanine Aminotransferase (ALT) 180 U/L (16-63) H Alkaline Phosphatase 143 U/L (46-116) H Troponin I High Sensitivity 29 ng/L (4-75) BG-Pbn-K-Type Natriuretic Peptide 38 pg/mL (0-124) Total Protein 8.6 g/dL (6.4-8.2) H Albumin 3.6 g/dL (3.4-5.0) Albumin/Globulin Ratio 0.7 (1.0-1.7) L Lipase 184 U/L (73-393) Urine Color (Auto) Yellow Urine Turbidity Hazy Urine pH (Auto) 5.5 (<5.0-8.0) Urine Specific [place] 1.033 (1.000-1.030) Urine Protein (Auto) 50 mg/dL (Negative) Urine Glucose (Auto)(UA) 200 mg/dL (Negative) Urine Ketones (Auto) Trace mg/dL (Negative) Urine Blood (Auto) Negative (Negative) Urine Nitrite Negative (Negative) Urine Bilirubin (Auto) Negative (Negative) Urine Urobilinogen (Auto) 2 mg/dL (Normal) Urine Leukocyte Esterase (Auto) Negative (Negative) Urine RBC 0 /HPF (0-2) Urine WBC 1-4 /HPF (0-4) Urine Squamous Epithelial Cells Mod /LPF Urine Amorphous Sediment Present /HPF Urine Bacteria 0 /HPF (0-FEW) Urine Hyaline Casts Many /HPF Urine Mucus Marked /LPF Laboratory Tests 08/06/21 03:30 Laboratory Tests 08/06/21 03:30 Vital Signs: Vital Signs Date Time Temp Pulse Resp B/P (MAP) Pulse Ox O2 Delivery O2 Flow Rate FiO2 08/06/21 01:40 98.3 101 18 127/79 (95) 96 Room Air 98.3 EKG: EKG: [] Heart Score: C/O Chest Pain: No Risk Factors: Risk Factors: DM, Current or recent (<one month) smoker, HTN, HLP, family history of CAD, obesity. Risk Scores: Score 0 - 3: 2.5% MACE over next 6 weeks - Discharge Home Score 4 - 6: 20.3% MACE over next 6 weeks - Admit for Clinical Observation Score 7 - 10: 72.7% MACE over next 6 weeks - Early Invasive Strategies Radiology/Procedures: Radiology/Procedures: [] Course & Med Decision Making: Course & Med Decision Making Pertinent Labs and Imaging studies reviewed. (See chart for details) [] Dragon Disclaimer: Dragon Disclaimer: This electronic medical record was generated, in whole or in part, using a voice recognition dictation system. Departure Departure Impression: Primary Impression: Heat exhaustion Disposition: HOME / SELF CARE / HOMELESS Condition: STABLE Referrals: MARY CHU MD (PCP) Patient Instructions: Heat-Related Illness LEROY TERRELL MD August 06, 2021 03:15
[2021-08-06 03:39] LABS: BASO # 0.2 x10^3/uL (0.0-0.2); BASO % 1 % (0-3); EOS # 0.2 x10^3/uL (0.0-0.7); EOS % 1 % (0-3); HEMATOCRIT 43.7 % (39.0-53.0); HEMOGLOBIN 15.2 g/dL (13.0-17.5); LYMPH # 2.4 x10^3/uL (1.0-4.8); LYMPH % 19 % (24-48); MEAN CORPUSCULAR HEMOGLOBIN 34 pg (25-35); MEAN CORPUSCULAR HGB CONC 35 g/dL (31-37); MEAN CORPUSCULAR VOLUME 96 fL (79-100); MONO % 8 % (0-9); NEUT % 71 % (31-73); PLATELET COUNT 188 x10^3/uL (140-400); RED BLOOD COUNT 4.53 x10^6/uL (4.30-5.70); RED CELL DISTRIBUTION WIDTH 13.3 % (11.5-14.5); WHITE BLOOD COUNT 12.7 x10^3/uL (4.0-11.0)
[2021-08-06 03:50] LABS: CALCIUM 9.5 mg/dL (8.5-10.1); CREATININE 1.7 mg/dL (0.7-1.3); GFR 44.9; POTASSIUM 4.2 mmol/L (3.5-5.1)
[2021-08-06 03:55] LABS: ALBUMIN 3.6 g/dL (3.4-5.0); ALBUMIN/GLOBULIN RATIO 0.7 (1.0-1.7); MAGNESIUM 1.9 mg/dL (1.8-2.4); PHOSPHORUS 4.5 mg/dL (2.6-4.7); TOTAL BILIRUBIN 0.7 mg/dL (0.2-1.0); TOTAL PROTEIN 8.6 g/dL (6.4-8.2)
[2021-08-06 04:02] LABS: AMORPHOUS SEDIMENT,UR PRESENT /HPF; BACTERIA,URINE 0 /HPF (0-FEW); HYALINE CASTS, URINE MANY /HPF; RBC,URINE 0 /HPF (0-2)
[2021-08-06 05:00] VITALS: BP 122/72
== END 2021-08-06 05:18 | disposition home or self-care (01) ==
LOC: ER 00:54
DX: T67.5XXA Heat exhaustion, unspecified, initial encounter (principal); R10.13 Epigastric pain; E11.9 Type 2 diabetes mellitus without complications; F31.9 Bipolar disorder, unspecified; E78.00 Pure hypercholesterolemia, unspecified; F90.9 Attention-deficit hyperactivity disorder, unspecified type; Z87.891 Personal history of nicotine dependence; X30.XXXA Exposure to excessive natural heat, initial encounter; Y93.89 Activity, other specified; Y92.89 Other specified places as the place of occurrence of the external cause; Y99.8 Other external cause status
CPT/HCPCS: 36415; 80053; 81001; 83605; 83690; 83735; 83880; 84100; 84484; 85025; 96360; 99283; J7030